=== PATIENT | male | born 1940 | race Caucasian/White ===

== ENCOUNTER 2017-02-03 05:49 | Day surgery (SDC) | payer OTHER ==
[~2017-02-03] VITALS: Ht 180.3 cm; Wt 179.2 kg
[~2017-02-03 05:49] MED LIST: CRESTOR10 MG PO; CYMBALTA; CYMBALTA60 MG; CYMBALTA60 MG PO; GABAPENTIN600 MG PO; GLIMEPIRIDE2 MG PO; HUMALOG100 UNIT/1 SQ; HUMULIN 70100 UNIT/2 SQ; Heparin Sodium SC; KEFLEX500 MG PO; LANTUS 10100 UNITS/ SC; LANTUS 3 M100 UNITS1 SC; LIPITOR40 MG PO; MAALOX ADVANCE355 ML PO; MED FOR GAS; MELOXICAM15 MG; METFORMIN HCL1000 MG PO; NEURONTIN600 MG PO; NOHOMEMEDS; NOVOLOG MI100 UNIT/M PO; NOVOLOG PE100 UNITS/ SC; PERCOCET 5/31 TABLET PO; PERCOCET 7.51 TABLET PO; PRAVASTATIN SOD20 MG; PRINIVIL20 MG PO; PROMETHAZINE HC25 M1 PO; PROTONIX40 MG PO; SENOKOT S,PE1 TABLET PO; SIMVASTATIN10 M1 PO; SIMVASTATIN40 M1; THERAGRAN1 TABLET PO; TRAMADOL HCL50 MG; Tylenol Regular Stre PO; ZANTAC150 MG PO; Zocor PO; oxyCODONE PO
[2017-02-03 06:33] VITALS: BP 140/65
[2017-02-03 06:38] LABS: CHLORIDE 101 mEq/L (99-109); POTASSIUM 4.3 mEq/L (3.7-5.4); SODIUM 138 mEq/L (136-147)
[2017-02-03 06:39] LABS: GLUCOSE 369 mg/dL (70-99)
[2017-02-03 06:41] LABS: ANION GAP 13 MEQ/L (2-14)
[2017-02-03 06:43] LABS: GFR ESTIMATE (CALCULATED) > 59 mL/min/
[2017-02-03 06:44] LABS: UREA NITROGEN (BUN) 13 mg/dL (9-23)
[2017-02-03 07:56] LABS: METH RESISTANT S AUREUS PCR NEGATIVE (NEGATIVE)
[2017-02-03 08:04] LABS: PROBE CHECK PASS; SPECIMEN PROCESSING CONTROL PASS
[2017-02-03 08:08] LABS: POINT-OF-CARE METER ID UU14174212
[2017-02-03 09:12] LABS: POINT-OF-CARE METER ID UU13113675
[2017-02-03 12:04] VITALS: BP 112/74
[2017-02-03 13:06] VITALS: BP 133/69
[2017-02-03 14:44] VITALS: BP 141/82
[2017-02-03 16:40] VITALS: BP 156/76
== END 2017-02-03 17:00 | disposition home or self-care (01) ==
LOC: SDC 05:49
PROVIDERS: Urology
DX: C61 Malignant neoplasm of prostate (principal); R35.0 Frequency of micturition; R35.1 Nocturia; E66.01 Morbid (severe) obesity due to excess calories; Z68.43 Body mass index [BMI] 50.0-59.9, adult; E11.9 Type 2 diabetes mellitus without complications; Z79.4 Long term (current) use of insulin; K21.9 Gastro-esophageal reflux disease without esophagitis; Z99.3 Dependence on wheelchair
CPT/HCPCS: 80048; 82948; 87641; 88305; 93005; J0690; J1580; J1815; J2250; J3010; J7050

== ENCOUNTER → 2017-03-05 | Outpatient (CLI) | payer OTHER ==
[~2017-03-05] VITALS: Ht 180.3 cm; Wt 179.2 kg
[2017-03-05 14:09] LABS: POINT-OF-CARE METER ID UU14174212
[2017-03-05 17:04] LABS: POINT-OF-CARE METER ID UU13113819
== END | disposition home or self-care (01) ==
LOC: AMB 13:37
PROVIDERS: Specialist
DX: R13.10 Dysphagia, unspecified (principal); I89.0 Lymphedema, not elsewhere classified; E78.5 Hyperlipidemia, unspecified; E11.9 Type 2 diabetes mellitus without complications; K21.9 Gastro-esophageal reflux disease without esophagitis; E66.01 Morbid (severe) obesity due to excess calories; Z68.43 Body mass index [BMI] 50.0-59.9, adult
CPT/HCPCS: 82948; 88305; 88342 TC

== ENCOUNTER 2017-03-30 09:55 | Observation (INO) | payer OTHER ==
[~2017-03-30] VITALS: Ht 180.3 cm; Wt 184.0 kg
[~2017-03-30 09:55] MED LIST changes: -NEURONTIN600 MG PO; +NEURONTIN800 MG PO; +TRESIBA FL200 UNIT/1 SC
[2017-03-30 10:48] LABS: HEMATOCRIT 40.9 % (38.0-50.0); MCH 26.7 PG (29.0-34.0); MCHC 32.8 G/DL (30.0-36.0); MCV 81.6 FL (86-99); MEAN PLAT.VOLUME 10.4 uM^3 (9.0-12.4); PLATELET COUNT 219 K/uL (156-360); RBC DIS.WIDTH-CV 14.5 % (11.8-14.6); RED BLOOD COUNT 5.01 M/uL (4.00-5.50)
[2017-03-30 10:57] LABS: CHLORIDE 100 mEq/L (99-109); POTASSIUM 4.8 mEq/L (3.7-5.4); SODIUM 139 mEq/L (136-147)
[2017-03-30 10:59] LABS: GLUCOSE 400 mg/dL (70-99)
[2017-03-30 11:01] LABS: ANION GAP 10 MEQ/L (2-14); TOTAL BILIRUBIN 0.4 mg/dL (0.0-1.0)
[2017-03-30 11:03] LABS: ALKALINE PHOSPHATASE 105 IU/L (3-129); GFR ESTIMATE (CALCULATED) 57 mL/min/
[2017-03-30 11:04] LABS: UREA NITROGEN (BUN) 17 mg/dL (9-23)
[2017-03-30 11:06] LABS: LIPASE 17 U/L (1.0-51.0)
[2017-03-30 13:08] LABS: POINT-OF-CARE METER ID UU14100415
[2017-03-30] MEDS ORDERED: SUCRALFATE1 GM PO (13:29)
[2017-03-30] MEDS ORDERED: COMPAZINE10 MG PO (13:29)
[2017-03-30] MEDS ORDERED: DICYCLOMINE HCL10 MG PO (13:30)
[2017-03-30 14:14] LABS: POINT-OF-CARE METER ID UU14100415
[2017-03-30 18:20] VITALS: BP 179/93
[2017-03-30 19:37] LABS: POINT-OF-CARE METER ID UU13113725
[2017-03-30 20:38] VITALS: BP 142/63
[2017-03-31 00:25] VITALS: BP 140/62
[2017-03-31 06:49] LABS: POINT-OF-CARE METER ID UU13113725
[2017-03-31 06:55] LABS: ANION GAP 8 MEQ/L (2-14); CHLORIDE 104 MEQ/L (99-109); GFR ESTIMATE (CALCULATED) > 59 mL/min/; GLUCOSE 241 mg/dL (70-99); POTASSIUM 4.3 MEQ/L (3.7-5.4); SAMPLE HEMOLYSIS CHECK 0; SAMPLE ICTERIC CHECK 0; SAMPLE LIPEMIA CHECK 0; SODIUM 141 MEQ/L (136-147); UREA NITROGEN (BUN) 16 mg/dL (9-23)
[2017-03-31 07:33] VITALS: BP 136/60
[2017-03-31 11:45] LABS: POINT-OF-CARE METER ID UU13113725
[2017-03-31 12:01] VITALS: BP 136/64
[2017-03-31 14:27] LABS: ADD MIUA? NO; BILIRUBIN NEGATIVE; BLOOD NEGATIVE; COLOR YELLOW ((YELLOW)); GLUCOSE (STRIP) >=500; KETONES 5; LEUKOCYTES NEGATIVE; NITRITE NEGATIVE; PROTEIN (STRIP) NEGATIVE; SPECIFIC GRAVITY 1.025 (1.000-1.030); UROBILINOGEN 0.2 MG/DL (0.2-1.0)
[2017-03-31 14:27] LABS: POINT-OF-CARE METER ID UU13113725
[2017-03-31 16:33] VITALS: BP 167/71
[2017-03-31 18:21] LABS: POINT-OF-CARE METER ID UU13113725
[2017-03-31 23:25] VITALS: BP 145/81
[2017-04-01 00:22] LABS: POINT-OF-CARE METER ID UU13113725
[2017-04-01 03:53] VITALS: BP 137/59
[2017-04-01 06:08] LABS: POINT-OF-CARE METER ID UU13113725
[2017-04-01 06:19] LABS: ANION GAP 6 MEQ/L (2-14); CHLORIDE 104 MEQ/L (99-109); GFR ESTIMATE (CALCULATED) > 59 mL/min/; GLUCOSE 201 mg/dL (70-99); POTASSIUM 3.9 MEQ/L (3.7-5.4); SAMPLE HEMOLYSIS CHECK 0; SAMPLE ICTERIC CHECK 0; SAMPLE LIPEMIA CHECK 0; SODIUM 140 MEQ/L (136-147); UREA NITROGEN (BUN) 14 mg/dL (9-23)
[2017-04-01 06:45] VITALS: BP 135/71
[2017-04-01 13:14] VITALS: BP 155/67
[2017-04-01 15:40] VITALS: BP 142/69
[2017-04-01 16:11] LABS: POINT-OF-CARE METER ID UU14107333
[2017-04-01 17:09] LABS: POINT-OF-CARE METER ID UU13113819
[2017-04-01 19:29] VITALS: BP 129/63
[2017-04-02 00:18] VITALS: BP 144/74
[2017-04-02 00:32] VITALS: BP 144/74
[2017-04-02 07:21] VITALS: BP 129/69
[2017-04-02] MEDS ORDERED: PROTONIX40 MG PO (10:21)
[2017-04-02] MEDS ORDERED: FLUCONAZOLE200 MG PO (10:22)
[2017-04-02 10:57] LABS: POINT-OF-CARE METER ID UU13113725
== END 2017-04-02 11:28 | disposition home or self-care (01) ==
LOC: EME 09:55 → EDOF 11:52 → 5EAST 11:52 → ENRESERV 11:55 → 5EAST 17:28
PROVIDERS: Emergency Medicine; Internal Medicine; Specialist
PROC: 0DB28ZX Excision of Middle Esophagus, Via Natural or Artificial Opening Endoscopic, Diagnostic (ICD-10-PCS; principal; 2017-03-31)
PROC: 0DB38ZX Excision of Lower Esophagus, Via Natural or Artificial Opening Endoscopic, Diagnostic (ICD-10-PCS; principal; 2017-03-31)
PROC: 0DB68ZX Excision of Stomach, Via Natural or Artificial Opening Endoscopic, Diagnostic (ICD-10-PCS; principal; 2017-03-31)
PROC: 0DJD8ZZ Inspection of Lower Intestinal Tract, Via Natural or Artificial Opening Endoscopic (ICD-10-PCS; 2017-04-01)
DX: R11.2 Nausea with vomiting, unspecified (principal); R10.9 Unspecified abdominal pain; K29.70 Gastritis, unspecified, without bleeding; E11.9 Type 2 diabetes mellitus without complications; Z79.4 Long term (current) use of insulin; R13.10 Dysphagia, unspecified; K21.9 Gastro-esophageal reflux disease without esophagitis; Z87.11 Personal history of peptic ulcer disease; E78.5 Hyperlipidemia, unspecified; E73.9 Lactose intolerance, unspecified; E66.01 Morbid (severe) obesity due to excess calories; Z68.43 Body mass index [BMI] 50.0-59.9, adult; C61 Malignant neoplasm of prostate; Z99.3 Dependence on wheelchair
CPT/HCPCS: 70450; 74022; 76705; 80048; 80053; 81003; 82948; 83690; 85027; 88305; 88342 TC; 94799; 99281; 99285; C9113; G0378; J1815; J2250; J2270; J2405; J2765; J7030

== ENCOUNTER → 2017-04-14 | Outpatient (CLI) | payer OTHER ==
[~2017-04-14] MED LIST changes: +COMPAZINE10 MG PO; +DICYCLOMINE HCL10 MG PO; +FLUCONAZOLE200 MG PO; +SUCRALFATE1 GM PO
== END | disposition home or self-care (01) ==
LOC: NUC 06:46
DX: R11.2 Nausea with vomiting, unspecified (principal)
CPT/HCPCS: 78264; A9541

== ENCOUNTER → 2017-05-07 | Outpatient (CLI) | payer OTHER | END | disposition home or self-care (01) | LOC: NUC 08:04 | DX: R10.33 Periumbilical pain (principal); R11.2 Nausea with vomiting, unspecified; K21.9 Gastro-esophageal reflux disease without esophagitis; R19.7 Diarrhea, unspecified | CPT/HCPCS: 78226; A9537 ==

== ENCOUNTER 2017-06-05 08:19 | Emergency (ER) | payer OTHER ==
[~2017-06-05] VITALS: Ht 172.7 cm; Wt 193.1 kg
[2017-06-05 08:55] LABS: HEMATOCRIT 42.7 % (38.0-50.0); MCH 26.7 PG (29.0-34.0); MCHC 32.6 G/DL (30.0-36.0); MEAN PLAT.VOLUME 10.6 uM^3 (9.0-12.4); PLATELET COUNT 193 K/uL (156-360); RBC DIS.WIDTH-CV 14.3 % (11.8-14.6); RBC DIS.WIDTH-SD 42.3 % (39-53); RED BLOOD COUNT 5.21 M/uL (4.00-5.50); WHITE BLOOD COUNT 9.6 K/uL (4.1-10.2)
[2017-06-05 09:03] LABS: CHLORIDE 97 mEq/L (99-109); POTASSIUM 4.9 mEq/L (3.7-5.4); SODIUM 134 mEq/L (136-147)
[2017-06-05 09:06] LABS: ANION GAP 13 MEQ/L (2-14)
[2017-06-05 09:07] LABS: TOTAL BILIRUBIN 0.8 mg/dL (0.0-1.0)
[2017-06-05 09:08] LABS: ALKALINE PHOSPHATASE 100 IU/L (3-129)
[2017-06-05 09:08] LABS: COLOR RED ((YELLOW))
[2017-06-05 09:09] LABS: GFR ESTIMATE (CALCULATED) > 59 mL/min/; GLUCOSE 412 mg/dL (70-99)
[2017-06-05 09:10] LABS: UREA NITROGEN (BUN) 21 mg/dL (9-23)
[2017-06-05 09:10] LABS: ADD MIUA? YES; SPECIFIC GRAVITY 1.031 (1.000-1.030)
[2017-06-05 09:11] LABS: RED BLOOD CELLS TNTC /HPF (0-5); UCUL ADDED? YES
[2017-06-05 11:30] LABS: POINT-OF-CARE METER ID UU13113702
[2017-06-05 12:35] VITALS: BP 106/38
[2017-06-05 12:41] LABS: ADD MIUA? YES; BILIRUBIN NEGATIVE; BLOOD LARGE; COLOR STRAW ((YELLOW)); GLUCOSE (STRIP) 150; KETONES NEGATIVE; LEUKOCYTES NEGATIVE; NITRITE NEGATIVE; PROTEIN (STRIP) NEGATIVE; SPECIFIC GRAVITY 1.006 (1.000-1.030); UROBILINOGEN 0.2 MG/DL (0.2-1.0)
[2017-06-05 13:01] LABS: RED BLOOD CELLS TNTC /HPF (0-5)
[2017-06-05 13:02] LABS: BACTERIA NONE SEEN /HPF; CASTS NONE SEEN /LPF; CRYSTALS NONE SEEN; EPITHELIAL CELLS RARE /HPF; MUCUS NONE SEEN /LPF; WHITE BLOOD CELLS 0-5 /HPF (0-5)
[2017-06-08 11:54] LABS: POINT-OF-CARE METER ID UU13113702
== END 2017-06-05 12:35 | disposition home or self-care (01) ==
LOC: EME → EDBD 08:19 → EME 08:19
PROVIDERS: Nurse Practitioner Family
PROC: 0T9B70Z Drainage of Bladder with Drainage Device, Via Natural or Artificial Opening (ICD-10-PCS; principal; 2017-06-05)
DX: R31.9 Hematuria, unspecified (principal); Z85.46 Personal history of malignant neoplasm of prostate; E11.9 Type 2 diabetes mellitus without complications; E78.5 Hyperlipidemia, unspecified; K21.9 Gastro-esophageal reflux disease without esophagitis; E66.01 Morbid (severe) obesity due to excess calories
CPT/HCPCS: 74177; 80053; 81003; 82948; 85027; 87086; 99281; 99285; J7030

== ENCOUNTER 2017-07-05 15:12 | Inpatient (IN) | payer OTHER ==
[~2017-07-05] VITALS: Ht 180.3 cm; Wt 179.7 kg
[~2017-07-05 15:12] MED LIST changes: +BACTRIM,SEPT1 TABLET PO; +CITALOPRAM HBR20 MG PO
[2017-07-05 15:57] LABS: EOSINOPHIL (%) 1.7 % (0-5); EOSINOPHIL COUNT 0.1 K/uL (0-0.3); HEMATOCRIT 41.9 % (38.0-50.0); IMMATURE GRANULOCYTE (%) 0.7 % (0.0-0.7); IMMATURE GRANULOCYTE COUNT 0.1 K/uL; INSTRUMENT ABS NEUTROPHIL CT 4.8 K/uL; LYMPHOCYTE COUNT 1.5 K/uL (1.0-2.8); MCH 25.9 PG (29.0-34.0); MCHC 32.2 G/DL (30.0-36.0); MCV 80.4 FL (86-99); MEAN PLAT.VOLUME 10.1 uM^3 (9.0-12.4); MONOCYTE (%) 5.5 % (3-12); MONOCYTE COUNT 0.4 K/uL (0-0.8); NEUTROPHIL (%) 69.7 % (45-76); NEUTROPHIL COUNT 4.8 K/uL (1.8-6.4); PLATELET COUNT 275 K/uL (156-360); RBC DIS.WIDTH-CV 13.4 % (11.8-14.6); RBC DIS.WIDTH-SD 39.4 % (39-53); WHITE BLOOD COUNT 6.9 K/uL (4.1-10.2)
[2017-07-05 15:59] LABS: RED BLOOD COUNT 5.21 M/uL (4.00-5.50)
[2017-07-05 16:01] LABS: CHLORIDE 100 mEq/L (99-109); POTASSIUM 4.5 mEq/L (3.7-5.4); SODIUM 136 mEq/L (136-147)
[2017-07-05 16:02] LABS: GLUCOSE 382 mg/dL (70-99)
[2017-07-05 16:04] LABS: ANION GAP 8 MEQ/L (2-14)
[2017-07-05 16:06] LABS: GFR ESTIMATE (CALCULATED) 57 mL/min/; TOTAL BILIRUBIN 0.4 mg/dL (0.0-1.0)
[2017-07-05 16:07] LABS: ALKALINE PHOSPHATASE 235 IU/L (3-129); UREA NITROGEN (BUN) 20 mg/dL (9-23)
[2017-07-05 16:09] LABS: DIRECT BILIRUBIN 0.2 mg/dL (0.0-0.3)
[2017-07-05 16:10] LABS: LIPASE 15 U/L (1.0-51.0)
[2017-07-05 16:20] LABS: CARBON DIOXIDE (BICARBONATE) 32.6 MEQ/L (20-31)
[2017-07-05 19:20] LABS: ADD MIUA? YES; BILIRUBIN NEGATIVE; BLOOD MODERATE; COLOR YELLOW ((YELLOW)); GLUCOSE (STRIP) >=500; KETONES NEGATIVE; LEUKOCYTES LARGE; NITRITE NEGATIVE; PROTEIN (STRIP) 30; SPECIFIC GRAVITY 1.008 (1.000-1.030); UROBILINOGEN 0.2 MG/DL (0.2-1.0)
[2017-07-05 19:39] LABS: BACTERIA 2+ /HPF; CASTS NONE SEEN /LPF; CRYSTALS NONE SEEN; EPITHELIAL CELLS RARE /HPF; MUCUS NONE SEEN /LPF; UCUL ADDED? YES; WHITE BLOOD CELLS TNTC /HPF (0-5)
[2017-07-05] MEDS ORDERED: OXYCODONE-APAP1 EAC6 PO (21:25)
[2017-07-05] MEDS ORDERED: ONDANSETRON HCL4 MG PO (21:29)
[2017-07-05] MEDS ORDERED: DICYCLOMINE HCL10 MG PO (21:30)
[2017-07-05] MEDS ORDERED: PROTONIX40 MG PO (21:31)
[2017-07-05 22:17] LABS: POINT-OF-CARE METER ID UU13113702
[2017-07-06 00:17] VITALS: BP 125/58
[2017-07-06 06:01] LABS: POINT-OF-CARE METER ID UU13113725
[2017-07-06 06:20] LABS: HEMATOCRIT 36.3 % (38.0-50.0); MCH 25.3 PG (29.0-34.0); MCHC 31.1 G/DL (30.0-36.0); MCV 81.4 FL (86-99); MEAN PLAT.VOLUME 9.9 uM^3 (9.0-12.4); PLATELET COUNT 264 K/uL (156-360); RBC DIS.WIDTH-CV 13.7 % (11.8-14.6); RBC DIS.WIDTH-SD 40.9 % (39-53); RED BLOOD COUNT 4.46 M/uL (4.00-5.50); WHITE BLOOD COUNT 7.5 K/uL (4.1-10.2)
[2017-07-06 06:46] LABS: ANION GAP 9 MEQ/L (2-14); CHLORIDE 105 MEQ/L (99-109); GFR ESTIMATE (CALCULATED) > 59 mL/min/; POTASSIUM 4.2 MEQ/L (3.7-5.4); SAMPLE HEMOLYSIS CHECK 0; SAMPLE ICTERIC CHECK 0; SAMPLE LIPEMIA CHECK 0; SODIUM 140 MEQ/L (136-147); UREA NITROGEN (BUN) 18 mg/dL (9-23)
[2017-07-06 06:51] LABS: GLUCOSE 180 mg/dL (70-99)
[2017-07-06 08:37] VITALS: BP 129/55
[2017-07-06 11:41] VITALS: BP 118/51
[2017-07-06 11:42] LABS: POINT-OF-CARE METER ID UU13113725
[2017-07-06 17:02] LABS: POINT-OF-CARE METER ID UU13113725
[2017-07-06 21:19] LABS: POINT-OF-CARE METER ID UU13113774
[2017-07-06 22:32] LABS: POINT-OF-CARE METER ID UU13113725
[2017-07-06 23:42] VITALS: BP 126/56; BP 126/71
[2017-07-07 06:16] LABS: POINT-OF-CARE METER ID UU13113774
[2017-07-07 08:03] VITALS: BP 131/73
[2017-07-07 11:45] LABS: POINT-OF-CARE METER ID UU13113725
[2017-07-07 15:59] VITALS: BP 142/75
[2017-07-07 16:06] LABS: POINT-OF-CARE METER ID UU13113725
[2017-07-07 21:53] LABS: POINT-OF-CARE METER ID UU13113725
[2017-07-08] VITALS: BP 138/81
[2017-07-08 05:47] LABS: BASOPHIL COUNT 0.1 K/uL (0-0.1); EOSINOPHIL (%) 6.1 % (0-5); EOSINOPHIL COUNT 0.5 K/uL (0-0.3); HEMATOCRIT 38.5 % (38.0-50.0); IMMATURE GRANULOCYTE (%) 1.8 % (0.0-0.7); IMMATURE GRANULOCYTE COUNT 0.1 K/uL; INSTRUMENT ABS NEUTROPHIL CT 4.4 K/uL; LYMPHOCYTE COUNT 1.9 K/uL (1.0-2.8); MCH 25.6 PG (29.0-34.0); MCHC 31.2 G/DL (30.0-36.0); MCV 82.1 FL (86-99); MEAN PLAT.VOLUME 9.6 uM^3 (9.0-12.4); MONOCYTE (%) 7.1 % (3-12); MONOCYTE COUNT 0.5 K/uL (0-0.8); NEUTROPHIL COUNT 4.4 K/uL (1.8-6.4); PLATELET COUNT 287 K/uL (156-360); RBC DIS.WIDTH-SD 41.6 % (39-53); RED BLOOD COUNT 4.69 M/uL (4.00-5.50); WHITE BLOOD COUNT 7.4 K/uL (4.1-10.2)
[2017-07-08 06:05] LABS: POINT-OF-CARE METER ID UU13113774
[2017-07-08 06:25] LABS: ANION GAP 8 MEQ/L (2-14); CHLORIDE 105 MEQ/L (99-109); GFR ESTIMATE (CALCULATED) > 59 mL/min/; GLUCOSE 72 mg/dL (70-99); POTASSIUM 4.2 MEQ/L (3.7-5.4); SAMPLE HEMOLYSIS CHECK 0; SAMPLE ICTERIC CHECK 0; SAMPLE LIPEMIA CHECK 0; SODIUM 139 MEQ/L (136-147); UREA NITROGEN (BUN) 18 mg/dL (9-23)
[2017-07-08 07:30] VITALS: BP 140/77
[2017-07-08 11:58] LABS: POINT-OF-CARE METER ID UU13113725
[2017-07-08 16:13] LABS: POINT-OF-CARE METER ID UU13113725
[2017-07-08 16:56] VITALS: BP 142/66
[2017-07-08 22:34] LABS: POINT-OF-CARE METER ID UU13113774
[2017-07-09 00:16] VITALS: BP 106/68
[2017-07-09 05:50] LABS: POINT-OF-CARE METER ID UU13113725
[2017-07-09 07:25] VITALS: BP 117/56
[2017-07-09 11:56] LABS: POINT-OF-CARE METER ID UU13113725
[2017-07-09 15:00] VITALS: BP 120/60
[2017-07-09 15:55] LABS: POINT-OF-CARE METER ID UU13113774
[2017-07-09 21:14] LABS: POINT-OF-CARE METER ID UU13113774
[2017-07-09 23:12] VITALS: BP 171/75
[2017-07-10 06:23] LABS: POINT-OF-CARE METER ID UU13113725
[2017-07-10 08:01] VITALS: BP 156/55
[2017-07-10 11:56] LABS: POINT-OF-CARE METER ID UU13113774
[2017-07-10] MEDS ORDERED: BACTRIM,SEPT1 TABLET PO (12:26)
[2017-07-10 15:54] VITALS: BP 163/67
[2017-07-10 17:03] LABS: POINT-OF-CARE METER ID UU13113774
== END 2017-07-10 16:41 | disposition home or self-care (01) | DRG 690 ==
LOC: EME 15:12 → EDOF 22:20 → 5EAST 22:20 → ENRESERV 22:21 → 5EAST 23:55
PROVIDERS: Hospitalist; Internal Medicine Infectious Disease; Physician Assistant; Student in an Organized Health Care Education/Training Program
DX: N39.0 Urinary tract infection, site not specified (principal); N12 Tubulo-interstitial nephritis, not specified as acute or chronic; E11.65 Type 2 diabetes mellitus with hyperglycemia; R78.81 Bacteremia; N28.82 Megaloureter; Q63.1 Lobulated, fused and horseshoe kidney; E11.40 Type 2 diabetes mellitus with diabetic neuropathy, unspecified; E78.5 Hyperlipidemia, unspecified; I10 Essential (primary) hypertension; E66.9 Obesity, unspecified; B95.8 Unspecified staphylococcus as the cause of diseases classified elsewhere; E87.2 Acidosis; K21.9 Gastro-esophageal reflux disease without esophagitis; Z85.46 Personal history of malignant neoplasm of prostate; F32.9 Major depressive disorder, single episode, unspecified; Z79.4 Long term (current) use of insulin; Z83.3 Family history of diabetes mellitus; Z68.43 Body mass index [BMI] 50.0-59.9, adult
CPT/HCPCS: 74176; 80048; 80076; 80202; 81003; 82010; 82565; 82803; 82948; 83605; 83690; 85025; 85027; 87040; 87086; 87106; 87801; 99281; 99285; J0692; J1200; J1644; J1815; J2543; J3010; J3370; J7030; J7040; J7050

== ENCOUNTER 2017-08-02 15:17 | Inpatient (IN) | payer OTHER ==
[~2017-08-02] VITALS: Ht 180.3 cm; Wt 177.0 kg
[~2017-08-02 15:17] MED LIST changes: +ONDANSETRON HCL4 MG PO; +OXYCODONE-APAP1 EAC6 PO
[2017-08-02 16:10] LABS: EOSINOPHIL (%) 0.8 % (0-5); EOSINOPHIL COUNT 0.1 K/uL (0-0.3); HEMATOCRIT 38.7 % (38.0-50.0); IMMATURE GRANULOCYTE (%) 1.6 % (0.0-0.7); IMMATURE GRANULOCYTE COUNT 0.1 K/uL; INSTRUMENT ABS NEUTROPHIL CT 5.9 K/uL; LYMPHOCYTE COUNT 0.9 K/uL (1.0-2.8); MCH 25.7 PG (29.0-34.0); MCHC 32.3 G/DL (30.0-36.0); MCV 79.5 FL (86-99); MEAN PLAT.VOLUME 9.5 uM^3 (9.0-12.4); MONOCYTE (%) 7.6 % (3-12); MONOCYTE COUNT 0.6 K/uL (0-0.8); NEUTROPHIL (%) 77.7 % (45-76); NEUTROPHIL COUNT 5.9 K/uL (1.8-6.4); PLATELET COUNT 289 K/uL (156-360); RBC DIS.WIDTH-CV 14.2 % (11.8-14.6); RBC DIS.WIDTH-SD 40.8 % (39-53); RED BLOOD COUNT 4.87 M/uL (4.00-5.50); WHITE BLOOD COUNT 7.6 K/uL (4.1-10.2)
[2017-08-02 16:19] LABS: CHLORIDE 97 mEq/L (99-109); POTASSIUM 3.7 mEq/L (3.7-5.4); SODIUM 138 mEq/L (136-147)
[2017-08-02 16:21] LABS: GLUCOSE 338 mg/dL (70-99)
[2017-08-02 16:22] LABS: ANION GAP 13 MEQ/L (2-14)
[2017-08-02 16:23] LABS: TOTAL BILIRUBIN 0.6 mg/dL (0.0-1.0)
[2017-08-02 16:24] LABS: ALKALINE PHOSPHATASE 207 IU/L (3-129)
[2017-08-02 16:25] LABS: GFR ESTIMATE (CALCULATED) 57 mL/min/ (58.99-99999)
[2017-08-02 16:26] LABS: UREA NITROGEN (BUN) 17 mg/dL (9-23)
[2017-08-02 16:29] LABS: ADD MIUA? YES; BILIRUBIN NEGATIVE; BLOOD SMALL; COLOR YELLOW ((YELLOW)); GLUCOSE (STRIP) NEGATIVE; KETONES NEGATIVE; LEUKOCYTES MODERATE; NITRITE NEGATIVE; PROTEIN (STRIP) 100; SPECIFIC GRAVITY 1.011 (1.000-1.030)
[2017-08-02 16:51] LABS: BACTERIA 2+ /HPF; EPITHELIAL CELLS NONE SEEN /HPF; MUCUS NONE SEEN /LPF; UCUL ADDED? YES; WHITE BLOOD CELLS TNTC /HPF (0-5)
[2017-08-02 16:52] LABS: CRYSTALS NONE SEEN
[2017-08-02] MEDS ORDERED: CITALOPRAM HBR20 MG PO ×2 (19:35)
[2017-08-02] MEDS ORDERED: B-123000 MCG SL (19:36)
[2017-08-02] MEDS ORDERED: COMPAZINE10 MG PO (19:37)
[2017-08-02 22:01] VITALS: BP 115/62
[2017-08-02 22:21] LABS: POINT-OF-CARE METER ID UU13113698
[2017-08-02 23:44] VITALS: BP 121/62
[2017-08-03 03:51] VITALS: BP 130/60
[2017-08-03 05:28] LABS: EOSINOPHIL (%) 2.2 % (0-5); EOSINOPHIL COUNT 0.2 K/uL (0-0.3); HEMATOCRIT 34.9 % (38.0-50.0); IMMATURE GRANULOCYTE (%) 1.3 % (0.0-0.7); IMMATURE GRANULOCYTE COUNT 0.1 K/uL; INSTRUMENT ABS NEUTROPHIL CT 5.2 K/uL; LYMPHOCYTE COUNT 1.5 K/uL (1.0-2.8); MCH 25.4 PG (29.0-34.0); MCHC 32.1 G/DL (30.0-36.0); MCV 79.1 FL (86-99); MEAN PLAT.VOLUME 9.9 uM^3 (9.0-12.4); MONOCYTE (%) 8.3 % (3-12); MONOCYTE COUNT 0.6 K/uL (0-0.8); NEUTROPHIL (%) 68.7 % (45-76); NEUTROPHIL COUNT 5.2 K/uL (1.8-6.4); PLATELET COUNT 282 K/uL (156-360); RBC DIS.WIDTH-CV 14.5 % (11.8-14.6); RBC DIS.WIDTH-SD 41.6 % (39-53); RED BLOOD COUNT 4.41 M/uL (4.00-5.50); WHITE BLOOD COUNT 7.6 K/uL (4.1-10.2)
[2017-08-03 05:39] LABS: CHLORIDE 102 mEq/L (99-109); POTASSIUM 3.2 mEq/L (3.7-5.4); SODIUM 141 mEq/L (136-147)
[2017-08-03 05:41] LABS: GLUCOSE 183 mg/dL (70-99)
[2017-08-03 05:42] LABS: ANION GAP 11 MEQ/L (2-14)
[2017-08-03 05:45] LABS: GFR ESTIMATE (CALCULATED) 57 mL/min/ (58.99-99999)
[2017-08-03 05:46] LABS: UREA NITROGEN (BUN) 21 mg/dL (9-23)
[2017-08-03 08:13] LABS: POINT-OF-CARE METER ID UU14174216
[2017-08-03 08:35] VITALS: BP 123/78
[2017-08-03 11:31] VITALS: BP 130/61
[2017-08-03 12:03] LABS: POINT-OF-CARE METER ID UU14314088
[2017-08-03 15:57] VITALS: BP 125/62
[2017-08-03 17:26] LABS: POINT-OF-CARE METER ID UU13113781
[2017-08-03 19:50] VITALS: BP 127/62
[2017-08-03 20:57] LABS: POINT-OF-CARE METER ID UU14174216
[2017-08-03 21:30] VITALS: BP 134/73
[2017-08-04 04:31] VITALS: BP 100/56
[2017-08-04 06:53] LABS: EOSINOPHIL (%) 4.6 % (0-5); EOSINOPHIL COUNT 0.4 K/uL (0-0.3); HEMATOCRIT 35.7 % (38.0-50.0); IMMATURE GRANULOCYTE (%) 1.2 % (0.0-0.7); IMMATURE GRANULOCYTE COUNT 0.1 K/uL; INSTRUMENT ABS NEUTROPHIL CT 4.7 K/uL; LYMPHOCYTE COUNT 1.9 K/uL (1.0-2.8); MCH 25.5 PG (29.0-34.0); MCHC 31.7 G/DL (30.0-36.0); MCV 80.6 FL (86-99); MEAN PLAT.VOLUME 9.9 uM^3 (9.0-12.4); MONOCYTE (%) 8.3 % (3-12); MONOCYTE COUNT 0.6 K/uL (0-0.8); NEUTROPHIL COUNT 4.7 K/uL (1.8-6.4); PLATELET COUNT 301 K/uL (156-360); RBC DIS.WIDTH-CV 14.7 % (11.8-14.6); RBC DIS.WIDTH-SD 43.2 % (39-53); RED BLOOD COUNT 4.43 M/uL (4.00-5.50); WHITE BLOOD COUNT 7.6 K/uL (4.1-10.2)
[2017-08-04 07:17] LABS: ANION GAP 8 MEQ/L (2-14); CHLORIDE 104 MEQ/L (99-109); GFR ESTIMATE (CALCULATED) > 59 mL/min/ (58.99-99999); POTASSIUM 3.5 MEQ/L (3.7-5.4); SAMPLE HEMOLYSIS CHECK 0; SAMPLE ICTERIC CHECK 0; SAMPLE LIPEMIA CHECK 0; SODIUM 142 MEQ/L (136-147); UREA NITROGEN (BUN) 20 mg/dL (9-23)
[2017-08-04 07:21] LABS: GLUCOSE 88 mg/dL (70-99)
[2017-08-04 07:30] VITALS: BP 160/77
[2017-08-04 08:01] LABS: POINT-OF-CARE METER ID UU13113717
[2017-08-04 11:32] VITALS: BP 106/70
[2017-08-04 12:13] LABS: POINT-OF-CARE METER ID UU14174225
[2017-08-04 17:10] LABS: POINT-OF-CARE METER ID UU14174225
[2017-08-04 19:29] VITALS: BP 129/59
[2017-08-04 21:40] LABS: POINT-OF-CARE METER ID UU14174225
[2017-08-04 23:46] VITALS: BP 119/68
[2017-08-05 04:16] VITALS: BP 128/59
[2017-08-05 07:30] LABS: POINT-OF-CARE METER ID UU13113717
[2017-08-05 08:14] VITALS: BP 129/60
[2017-08-05 11:56] LABS: POINT-OF-CARE METER ID UU13113717
[2017-08-05] MEDS ORDERED: DIFLUCAN200 MG PO (15:44)
[2017-08-05] MEDS ORDERED: BACTRIM,SEPT1 TABLET PO (15:44)
[2017-08-05 16:33] VITALS: BP 138/64
[2017-08-05 17:49] LABS: POINT-OF-CARE METER ID UU13113717
== END 2017-08-05 18:18 | disposition home health service (06) | DRG 872 ==
LOC: EME 15:17 → 5SOUTH 19:37 → 4EAST 19:37 → EDOF 19:37 → ENRESERV 19:48 → 4EAST 21:43 → ENRESERV 08-03 16:54 → 5SOUTH 08-03 21:22 → ENPENDDIS 08-05 15:44 → 5SOUTH 08-05 18:18
PROVIDERS: Hospitalist; Physician Assistant; Student in an Organized Health Care Education/Training Program
DX: A41.9 Sepsis, unspecified organism (principal); N39.0 Urinary tract infection, site not specified; K21.9 Gastro-esophageal reflux disease without esophagitis; Z68.43 Body mass index [BMI] 50.0-59.9, adult; C61 Malignant neoplasm of prostate; E66.01 Morbid (severe) obesity due to excess calories; E87.2 Acidosis; Z87.440 Personal history of urinary (tract) infections; F32.9 Major depressive disorder, single episode, unspecified; R32 Unspecified urinary incontinence; E11.9 Type 2 diabetes mellitus without complications
CPT/HCPCS: 74177; 80048; 80053; 81003; 82948; 83605; 85025; 87040; 87086; 87106; 87493; 99281; 99285; J0692; J1650; J1815; J7030; J7040; J7120

== ENCOUNTER 2017-08-23 16:06 | Emergency (ER) | payer OTHER ==
[~2017-08-23] VITALS: Ht 172.7 cm; Wt 177.5 kg
[~2017-08-23 16:06] MED LIST changes: +B-123000 MCG SL; +DIFLUCAN200 MG PO
[2017-08-23 17:09] LABS: HEMATOCRIT 34.7 % (38.0-50.0); HEMOGLOBIN 11.1 G/DL (12.5-16.6); MCH 25.1 PG (29.0-34.0); MCV 78.5 FL (86-99); PLATELET COUNT 251 K/uL (156-360); RBC DIS.WIDTH-CV 14.6 % (11.8-14.6); RBC DIS.WIDTH-SD 41.7 % (39-53); RED BLOOD COUNT 4.42 M/uL (4.00-5.50); WHITE BLOOD COUNT 6.2 K/uL (4.1-10.2)
[2017-08-23 17:17] LABS: CHLORIDE 99 mEq/L (99-109); POTASSIUM 3.7 mEq/L (3.7-5.4); SODIUM 136 mEq/L (136-147)
[2017-08-23 17:18] LABS: GLUCOSE 374 mg/dL (70-99)
[2017-08-23 17:22] LABS: CREATININE 1.1 mg/dL (0.6-1.3); GFR ESTIMATE (CALCULATED) > 59 mL/min/ (58.99-99999)
[2017-08-23 17:23] LABS: UREA NITROGEN (BUN) 12 mg/dL (9-23)
[2017-08-23 19:03] LABS: APPEARANCE TURBID ((CLEAR)); BILIRUBIN NEGATIVE; BLOOD MODERATE; GLUCOSE (STRIP) >=500; KETONES NEGATIVE; LEUKOCYTES LARGE; NITRITE NEGATIVE; PROTEIN (STRIP) 30; SPECIFIC GRAVITY 1.005 (1.000-1.030); UROBILINOGEN 0.2 MG/DL (0.2-1.0)
[2017-08-23 19:05] LABS: COLOR YELLOW ((YELLOW))
[2017-08-23 19:17] LABS: BACTERIA 1+ /HPF; EPITHELIAL CELLS 1+ /HPF; MUCUS NONE SEEN /LPF; RED BLOOD CELLS 0-5 /HPF (0-5); UCUL ADDED? YES; WHITE BLOOD CELLS TNTC /HPF (0-5)
[2017-08-23 21:00] VITALS: BP 139/81
== END 2017-08-23 21:15 | disposition home or self-care (01) ==
LOC: EME 16:06
PROVIDERS: Emergency Medicine
DX: N39.0 Urinary tract infection, site not specified (principal); E11.65 Type 2 diabetes mellitus with hyperglycemia; E11.40 Type 2 diabetes mellitus with diabetic neuropathy, unspecified; K21.9 Gastro-esophageal reflux disease without esophagitis; E78.5 Hyperlipidemia, unspecified; B19.10 Unspecified viral hepatitis B without hepatic coma; F32.9 Major depressive disorder, single episode, unspecified; Z85.07 Personal history of malignant neoplasm of pancreas; Z79.4 Long term (current) use of insulin
CPT/HCPCS: 80048; 81003; 82948; 85027; 87086; 99281; 99284; J0696; J7030

== ENCOUNTER 2017-08-25 10:22 | Inpatient (IN) | payer OTHER ==
[~2017-08-25] VITALS: Ht 180.3 cm; Wt 177.0 kg
[2017-08-25 12:24] LABS: HEMATOCRIT 34.1 % (38.0-50.0); HEMOGLOBIN 11.1 G/DL (12.5-16.6); MCH 25.5 PG (29.0-34.0); MCHC 32.6 G/DL (30.0-36.0); MCV 78.4 FL (86-99); PLATELET COUNT 280 K/uL (156-360); RBC DIS.WIDTH-CV 14.7 % (11.8-14.6); RBC DIS.WIDTH-SD 42.3 % (39-53); RED BLOOD COUNT 4.35 M/uL (4.00-5.50); WHITE BLOOD COUNT 6.9 K/uL (4.1-10.2)
[2017-08-25 12:36] LABS: ALBUMIN 2.8 g/dL (3.2-4.8)
[2017-08-25 12:37] LABS: CHLORIDE 102 mEq/L (99-109); POTASSIUM 3.3 mEq/L (3.7-5.4); SODIUM 138 mEq/L (136-147)
[2017-08-25 12:39] LABS: GLUCOSE 376 mg/dL (70-99)
[2017-08-25 12:41] LABS: TOTAL BILIRUBIN 0.4 mg/dL (0.0-1.0)
[2017-08-25 12:42] LABS: ALKALINE PHOSPHATASE 138 IU/L (3-129); SERUM ETHYL ALCOHOL < 10 mg/dL
[2017-08-25 12:43] LABS: GFR ESTIMATE (CALCULATED) > 59 mL/min/ (58.99-99999)
[2017-08-25 12:44] LABS: AST (GOT) 21 IU/L (2-34); UREA NITROGEN (BUN) 8 mg/dL (9-23)
[2017-08-25 12:46] LABS: ALT (GPT) 23 IU/L (3-49)
[2017-08-25 13:35] LABS: APPEARANCE TURBID ((CLEAR)); BILIRUBIN NEGATIVE; BLOOD MODERATE; COLOR AMBER ((YELLOW)); GLUCOSE (STRIP) >=500; KETONES NEGATIVE; LEUKOCYTES MODERATE; NITRITE NEGATIVE; PROTEIN (STRIP) 100; SPECIFIC GRAVITY 1.006 (1.000-1.030); UROBILINOGEN 0.2 MG/DL (0.2-1.0)
[2017-08-25 13:48] LABS: WHITE BLOOD CELLS TNTC /HPF (0-5)
[2017-08-25 14:37] LABS: AMPHETAMINE NEGATIVE (500 ng/mL); BARBITURATES NEGATIVE (200 ng/mL); BENZODIAZEPINES NEGATIVE (150 ng/mL); BUPRENORPHINE NEGATIVE (10 ng/mL); COCAINE NEGATIVE (150 ng/mL); METHADONE NEGATIVE (200 ng/mL); METHAMPHETAMINE NEGATIVE (500 ng/mL); OPIATES (MORPHINE) NEGATIVE (100 ng/mL); OXYCODONE NEGATIVE (100 ng/mL); PHENCYCLIDINE NEGATIVE (25 ng/mL); PROPOXYPHENE NEGATIVE (300 ng/mL); THC CANNABINOIDS NEGATIVE (50 ng/mL); TRICYCLIC ANTIDEPRESSANTS NEGATIVE (300 ng/mL)
[2017-08-25] MEDS ORDERED: SUPER MULTIVIT1 EACH PO (17:10)
[2017-08-25 20:47] VITALS: BP 112/51
[2017-08-25 23:55] VITALS: BP 118/52
[2017-08-26] VITALS (7 sets, daily range): BP systolic 131–149; BP diastolic 71–91
[2017-08-26 07:22] LABS: HEMATOCRIT 33.9 % (38.0-50.0); HEMOGLOBIN 10.7 G/DL (12.5-16.6); MCH 24.8 PG (29.0-34.0); MCHC 31.6 G/DL (30.0-36.0); MCV 78.5 FL (86-99); PLATELET COUNT 291 K/uL (156-360); RBC DIS.WIDTH-CV 14.8 % (11.8-14.6); RBC DIS.WIDTH-SD 42.6 % (39-53); RED BLOOD COUNT 4.32 M/uL (4.00-5.50); WHITE BLOOD COUNT 6.4 K/uL (4.1-10.2)
[2017-08-26 07:39] LABS: CHLORIDE 100 MEQ/L (99-109); CREATININE 1.1 MG/DL (0.6-1.3); GFR ESTIMATE (CALCULATED) > 59 mL/min/ (58.99-99999); GLUCOSE 238 mg/dL (70-99); POTASSIUM 3.5 MEQ/L (3.7-5.4); SODIUM 134 MEQ/L (136-147); UREA NITROGEN (BUN) 12 mg/dL (9-23)
[2017-08-27 03:53] VITALS: BP 145/85
[2017-08-27 06:02] LABS: HEMATOCRIT 36.1 % (38.0-50.0); HEMOGLOBIN 11.3 G/DL (12.5-16.6); MCH 24.9 PG (29.0-34.0); MCHC 31.3 G/DL (30.0-36.0); MCV 79.5 FL (86-99); PLATELET COUNT 329 K/uL (156-360); RBC DIS.WIDTH-CV 15.1 % (11.8-14.6); RBC DIS.WIDTH-SD 43.6 % (39-53); RED BLOOD COUNT 4.54 M/uL (4.00-5.50); WHITE BLOOD COUNT 7.2 K/uL (4.1-10.2)
[2017-08-27 06:28] LABS: CHLORIDE 104 MEQ/L (99-109); GFR ESTIMATE (CALCULATED) > 59 mL/min/ (58.99-99999); GLUCOSE 112 mg/dL (70-99); POTASSIUM 4.1 MEQ/L (3.7-5.4); UREA NITROGEN (BUN) 10 mg/dL (9-23)
[2017-08-27 06:29] LABS: SODIUM 141 MEQ/L (136-147)
[2017-08-27 08:13] VITALS: BP 126/63
[2017-08-27 12:00] VITALS: BP 124/66
[2017-08-27 15:37] VITALS: BP 152/82
[2017-08-27 19:44] VITALS: BP 139/59
[2017-08-28 00:09] VITALS: BP 139/64
[2017-08-28 03:44] VITALS: BP 139/75
[2017-08-28 08:30] VITALS: BP 153/85
[2017-08-28 15:50] VITALS: BP 158/72
[2017-08-29 00:02] VITALS: BP 156/74
[2017-08-29 07:29] VITALS: BP 150/82
[2017-08-29 15:10] VITALS: BP 130/67
[2017-08-29 23:24] VITALS: BP 122/56
[2017-08-30 07:00] VITALS: BP 172/80
[2017-08-30 09:29] LABS: HEMOGLOBIN 11.4 G/DL (12.5-16.6); MCH 25.5 PG (29.0-34.0); MCHC 30.8 G/DL (30.0-36.0); MCV 82.8 FL (86-99); PLATELET COUNT 348 K/uL (156-360); RBC DIS.WIDTH-CV 16.3 % (11.8-14.6); RBC DIS.WIDTH-SD 49.1 % (39-53); RED BLOOD COUNT 4.47 M/uL (4.00-5.50); WHITE BLOOD COUNT 7.1 K/uL (4.1-10.2)
[2017-08-30 10:03] LABS: CHLORIDE 101 MEQ/L (99-109); CREATININE 1.2 MG/DL (0.6-1.3); GFR ESTIMATE (CALCULATED) > 59 mL/min/ (58.99-99999); GLUCOSE 142 mg/dL (70-99); POTASSIUM 4.8 MEQ/L (3.7-5.4); SODIUM 140 MEQ/L (136-147); UREA NITROGEN (BUN) 20 mg/dL (9-23)
[2017-08-30 10:05] VITALS: BP 130/58
[2017-08-30] MEDS ORDERED: FLUCONAZOLE200 MG PO (15:00)
== END 2017-08-30 16:40 | disposition home health service (06) | DRG 728 ==
LOC: EME 10:22 → 5SOUTH 17:16 → EDOF 17:16 → ENRESERV 17:21 → 5SOUTH 20:45
PROVIDERS: Emergency Medicine; Internal Medicine; Nurse Practitioner Adult Health; Physician Assistant Medical
DX: B37.49 Other urogenital candidiasis (principal); E87.6 Hypokalemia; F33.1 Major depressive disorder, recurrent, moderate; R45.851 Suicidal ideations; E11.42 Type 2 diabetes mellitus with diabetic polyneuropathy; E11.65 Type 2 diabetes mellitus with hyperglycemia; G89.29 Other chronic pain; K21.9 Gastro-esophageal reflux disease without esophagitis; E66.01 Morbid (severe) obesity due to excess calories; M25.519 Pain in unspecified shoulder; M54.5 Low back pain; R32 Unspecified urinary incontinence; D64.9 Anemia, unspecified; R26.2 Difficulty in walking, not elsewhere classified; R29.6 Repeated falls; Z68.43 Body mass index [BMI] 50.0-59.9, adult; Z79.4 Long term (current) use of insulin; Z85.46 Personal history of malignant neoplasm of prostate; Z86.14 Personal history of Methicillin resistant Staphylococcus aureus infection; Z91.19 Patient's noncompliance with other medical treatment and regimen
CPT/HCPCS: 80048; 80053; 81003; 82140; 82800; 82948; 83930; 85027; 87086; 87106; 99281; 99284; G0480; J0696; J1450; J1650; J1815; J7030

== ENCOUNTER 2017-09-22 14:45 | Inpatient (IN) | payer OTHER ==
[~2017-09-22] VITALS: Ht 180.3 cm; Wt 181.2 kg
[~2017-09-22 14:45] MED LIST changes: +SUPER MULTIVIT1 EACH PO
[2017-09-22 16:27] LABS: BASE EXCESS 7.3 mEq/L (-3 to +3); CARBOXY HGB 2.1 % (0-5); METHEMOGLOBIN 0.7 % (0-1.5); PCO2 45 mm Hg (35-45); PO2 57 mm Hg (80-100); pH 7.46 (7.35-7.45)
[2017-09-22 16:28] LABS: COMMENTS - BLOOD GASES A+C+; SITE RB
[2017-09-22 16:48] LABS: BASOPHIL (%) 0.7 % (0-1); EOSINOPHIL (%) 1.4 % (0-5); EOSINOPHIL COUNT 0.1 K/uL (0-0.3); HEMATOCRIT 39.1 % (38.0-50.0); HEMOGLOBIN 12.2 G/DL (12.5-16.6); IMMATURE GRANULOCYTE (%) 0.7 % (0.0-0.7); LYMPHOCYTE COUNT 0.8 K/uL (1.0-2.8); MCH 25.4 PG (29.0-34.0); MCHC 31.2 G/DL (30.0-36.0); MCV 81.5 FL (86-99); MONOCYTE (%) 6.4 % (3-12); MONOCYTE COUNT 0.3 K/uL (0-0.8); NEUTROPHIL (%) 71.8 % (45-76); RBC DIS.WIDTH-CV 16.7 % (11.8-14.6); RBC DIS.WIDTH-SD 49.8 % (39-53); WHITE BLOOD COUNT 4.2 K/uL (4.1-10.2)
[2017-09-22 16:53] LABS: ALBUMIN 3.5 g/dL (3.2-4.8); CHLORIDE 103 mEq/L (99-109); SODIUM 143 mEq/L (136-147)
[2017-09-22 16:55] LABS: GLUCOSE 131 mg/dL (70-99); TOTAL PROTEIN 8.7 g/dL (6.4-8.3)
[2017-09-22 16:57] LABS: TOTAL BILIRUBIN 0.4 mg/dL (0.0-1.0)
[2017-09-22 16:59] LABS: ALKALINE PHOSPHATASE 159 IU/L (3-129); CREATININE 1.4 mg/dL (0.6-1.3); GFR ESTIMATE (CALCULATED) 53 mL/min/ (58.99-99999); TROP-I INTERPRETATION NEGATIVE; TROPONIN-I 0.02 ng/mL (0.0-0.30)
[2017-09-22 17:00] LABS: AST (GOT) 42 IU/L (2-34); UREA NITROGEN (BUN) 13 mg/dL (9-23)
[2017-09-22 17:01] LABS: DIRECT BILIRUBIN 0.2 mg/dL (0.0-0.3)
[2017-09-22 17:02] LABS: ALT (GPT) 25 IU/L (3-49); LIPASE 6 U/L (1.0-51.0)
[2017-09-22 17:13] LABS: INTER. NORMALIZED RATIO 1.3
[2017-09-22 17:16] LABS: PTT 33.6 SEC (25-37)
[2017-09-22 17:48] LABS: PLATELET CLUMPS PRESENT - PLATELET COUNT APPEARS ADQ.; PLATELET COUNT UNABLE TO REPORT K/uL (156-360)
[2017-09-22 21:14] LABS: APPEARANCE CLEAR ((CLEAR)); BILIRUBIN NEGATIVE; BLOOD NEGATIVE; COLOR YELLOW ((YELLOW)); GLUCOSE (STRIP) NEGATIVE; KETONES NEGATIVE; LEUKOCYTES LARGE; NITRITE NEGATIVE; PROTEIN (STRIP) NEGATIVE; SPECIFIC GRAVITY 1.009 (1.000-1.030); UROBILINOGEN 0.2 MG/DL (0.2-1.0)
[2017-09-22 21:22] LABS: BACTERIA RARE /HPF; EPITHELIAL CELLS RARE /HPF; MUCUS TRACE /LPF; RED BLOOD CELLS 0-5 /HPF (0-5); UCUL ADDED? YES; WHITE BLOOD CELLS 30-40 /HPF (0-5)
[2017-09-23 00:22] VITALS: BP 146/64
[2017-09-23 03:39] VITALS: BP 154/69
[2017-09-23 07:50] VITALS: BP 158/72
[2017-09-23 12:14] VITALS: BP 134/62
[2017-09-23 16:23] VITALS: BP 101/59
[2017-09-23 16:26] VITALS: BP 133/65
[2017-09-24 00:18] VITALS: BP 160/78
[2017-09-24 07:35] LABS: ALBUMIN 2.4 G/DL (3.2-4.8); ALKALINE PHOSPHATASE 105 IU/L (3-129); ALT (GPT) 20 IU/L (3-49); AST (GOT) 36 IU/L (2-34); CHLORIDE 106 MEQ/L (99-109); CREATININE 1.1 MG/DL (0.6-1.3); GFR ESTIMATE (CALCULATED) > 59 mL/min/ (58.99-99999); POTASSIUM 3.5 MEQ/L (3.7-5.4); SODIUM 145 MEQ/L (136-147); TOTAL BILIRUBIN 0.3 MG/DL (0.0-1.0); TOTAL PROTEIN 5.6 G/DL (6.4-8.3); UREA NITROGEN (BUN) 15 mg/dL (9-23)
[2017-09-24 07:37] LABS: GLUCOSE 71 mg/dL (70-99)
[2017-09-24 08:11] VITALS: BP 164/74
[2017-09-24 11:47] VITALS: BP 120/71
[2017-09-24 15:50] VITALS: BP 101/55; BP 128/18
[2017-09-24 20:05] VITALS: BP 124/58
[2017-09-25 00:15] VITALS: BP 129/60
[2017-09-25 04:10] VITALS: BP 125/59
[2017-09-25 07:24] LABS: ALBUMIN 2.5 G/DL (3.2-4.8); ALKALINE PHOSPHATASE 104 IU/L (3-129); ALT (GPT) 19 IU/L (3-49); AST (GOT) 29 IU/L (2-34); CHLORIDE 105 MEQ/L (99-109); GFR ESTIMATE (CALCULATED) > 59 mL/min/ (58.99-99999); POTASSIUM 3.8 MEQ/L (3.7-5.4); SODIUM 143 MEQ/L (136-147); TOTAL BILIRUBIN 0.3 MG/DL (0.0-1.0); TOTAL PROTEIN 5.5 G/DL (6.4-8.3); UREA NITROGEN (BUN) 14 mg/dL (9-23)
[2017-09-25 07:43] LABS: GLUCOSE 101 mg/dL (70-99)
[2017-09-25 08:34] VITALS: BP 139/63
[2017-09-25 16:39] VITALS: BP 148/67
[2017-09-26 08:26] VITALS: BP 135/63
[2017-09-26] MEDS ORDERED: LISINOPRIL20 MG PO (10:51)
[2017-09-26] MEDS ORDERED: LEVEMIR100 UNIT/2 SC (10:51)
[2017-09-26] MEDS ORDERED: ENDOCET 5-3251 EACH PO (10:51)
[2017-09-26] MEDS ORDERED: PEN-VEE K,VEET500 MG PO (10:51)
[2017-09-26 16:32] VITALS: BP 137/66
== END 2017-09-26 17:20 | DRG 872 ==
LOC: EME 14:45 → 5EAST 19:14 → EDOF 19:14 → ENRESERV 19:40 → 5EAST 09-23 00:04 → ENPENDDIS 09-26 15:30 → 5EAST 09-26 17:20
PROVIDERS: Emergency Medicine; Family Medicine; Internal Medicine
DX: A41.9 Sepsis, unspecified organism (principal); N39.0 Urinary tract infection, site not specified; B37.49 Other urogenital candidiasis; E66.01 Morbid (severe) obesity due to excess calories; Z68.43 Body mass index [BMI] 50.0-59.9, adult; I87.2 Venous insufficiency (chronic) (peripheral); E11.40 Type 2 diabetes mellitus with diabetic neuropathy, unspecified; E78.5 Hyperlipidemia, unspecified; C61 Malignant neoplasm of prostate; Z87.440 Personal history of urinary (tract) infections; K21.9 Gastro-esophageal reflux disease without esophagitis; R53.1 Weakness; Z91.19 Patient's noncompliance with other medical treatment and regimen; Q63.1 Lobulated, fused and horseshoe kidney; F32.9 Major depressive disorder, single episode, unspecified; F41.9 Anxiety disorder, unspecified; N05.9 Unspecified nephritic syndrome with unspecified morphologic changes
CPT/HCPCS: 36600; 71045; 76770; 80053; 81003; 82248; 82803; 82948; 83605; 83690; 84484; 85025; 85610; 85730; 87040; 87086; 93005; 99281; 99285; G0103; J0692; J1450; J1650; J7030

== ENCOUNTER 2017-10-02 10:00 | Inpatient (IN) | payer OTHER ==
[~2017-10-02] VITALS: Ht 180.3 cm; Wt 182.4 kg
[~2017-10-02 10:00] MED LIST changes: +ENDOCET 5-3251 EACH PO; +LEVEMIR100 UNIT/2 SC; +LISINOPRIL20 MG PO; +PEN-VEE K,VEET500 MG PO
[2017-10-02 10:55] LABS: APPEARANCE TURBID ((CLEAR)); BILIRUBIN NEGATIVE; BLOOD LARGE; COLOR AMBER ((YELLOW)); GLUCOSE (STRIP) NEGATIVE; KETONES NEGATIVE; LEUKOCYTES LARGE; NITRITE NEGATIVE; PROTEIN (STRIP) 100; SPECIFIC GRAVITY 1.008 (1.000-1.030); UROBILINOGEN 0.2 MG/DL (0.2-1.0)
[2017-10-02 11:17] LABS: UCUL ADDED? YES; WHITE BLOOD CELLS TNTC /HPF (0-5)
[2017-10-02 11:19] LABS: HEMATOCRIT 39.1 % (38.0-50.0); HEMOGLOBIN 12.8 G/DL (12.5-16.6); MCH 25.5 PG (29.0-34.0); MCHC 32.7 G/DL (30.0-36.0); RBC DIS.WIDTH-CV 16.1 % (11.8-14.6); RBC DIS.WIDTH-SD 45.2 % (39-53); RED BLOOD COUNT 5.01 M/uL (4.00-5.50); WHITE BLOOD COUNT 13.4 K/uL (4.1-10.2)
[2017-10-02 11:21] LABS: PLATELET COUNT 432 K/uL (156-360)
[2017-10-02 11:32] LABS: ALBUMIN 2.8 g/dL (3.2-4.8); CHLORIDE 102 mEq/L (99-109); POTASSIUM 3.4 mEq/L (3.7-5.4); SODIUM 139 mEq/L (136-147)
[2017-10-02 11:34] LABS: GLUCOSE 333 mg/dL (70-99)
[2017-10-02 11:35] LABS: TOTAL PROTEIN 6.9 g/dL (6.4-8.3)
[2017-10-02 11:36] LABS: TOTAL BILIRUBIN 0.6 mg/dL (0.0-1.0)
[2017-10-02 11:38] LABS: ALKALINE PHOSPHATASE 176 IU/L (3-129); CREATININE 1.1 mg/dL (0.6-1.3); GFR ESTIMATE (CALCULATED) > 59 mL/min/ (58.99-99999)
[2017-10-02 11:39] LABS: UREA NITROGEN (BUN) 11 mg/dL (9-23)
[2017-10-02 11:40] LABS: AST (GOT) 38 IU/L (2-34)
[2017-10-02 11:41] LABS: ALT (GPT) 30 IU/L (3-49); LIPASE 12 U/L (1.0-51.0)
[2017-10-02 11:42] LABS: CREATINE KINASE 25 IU/L (1-294)
[2017-10-02] MEDS ORDERED: OXYCODONE-APAP1 EAC6 PO (14:45)
[2017-10-02] MEDS ORDERED: TRESIBA FL100 UNIT/1 SC (14:47)
[2017-10-02] MEDS ORDERED: CREAM TP (14:48)
[2017-10-02] MEDS ORDERED: GABAPENTIN800 MG PO (14:48)
[2017-10-02 20:10] VITALS: BP 116/67
[2017-10-03 00:48] VITALS: BP 120/65
[2017-10-03 04:18] VITALS: BP 121/67
[2017-10-03 07:16] LABS: BASOPHIL (%) 0.7 % (0-1); BASOPHIL COUNT 0.1 K/uL (0-0.1); EOSINOPHIL (%) 4.2 % (0-5); EOSINOPHIL COUNT 0.4 K/uL (0-0.3); HEMATOCRIT 32.3 % (38.0-50.0); IMMATURE GRANULOCYTE (%) 2.3 % (0.0-0.7); LYMPHOCYTE (%) 16.1 % (15-42); LYMPHOCYTE COUNT 1.4 K/uL (1.0-2.8); MCH 24.7 PG (29.0-34.0); MCV 79.8 FL (86-99); MONOCYTE (%) 8.8 % (3-12); MONOCYTE COUNT 0.8 K/uL (0-0.8); NEUTROPHIL (%) 67.9 % (45-76); NEUTROPHIL COUNT 5.8 K/uL (1.8-6.4); RBC DIS.WIDTH-CV 16.3 % (11.8-14.6); RED BLOOD COUNT 4.05 M/uL (4.00-5.50); WHITE BLOOD COUNT 8.5 K/uL (4.1-10.2)
[2017-10-03 07:31] LABS: ANISOCYTOSIS 1+; MICROCYTOSIS 1+; PLAT.SUFFICIENCY ADEQUATE
[2017-10-03 07:32] LABS: PLATELET COUNT 298 K/uL (156-360)
[2017-10-03 07:36] LABS: CHLORIDE 107 MEQ/L (99-109); CREATININE 1.1 MG/DL (0.6-1.3); GFR ESTIMATE (CALCULATED) > 59 mL/min/ (58.99-99999); GLUCOSE 167 mg/dL (70-99); SODIUM 141 MEQ/L (136-147); UREA NITROGEN (BUN) 15 mg/dL (9-23)
[2017-10-03 07:44] VITALS: BP 110/56
[2017-10-03 12:32] VITALS: BP 148/71
[2017-10-03 16:35] VITALS: BP 132/81
[2017-10-03 20:00] VITALS: BP 147/73
[2017-10-04] VITALS: BP 142/82
[2017-10-04 04:59] VITALS: BP 133/67
[2017-10-04 05:49] LABS: HEMATOCRIT 31.2 % (38.0-50.0); HEMOGLOBIN 9.7 G/DL (12.5-16.6); MCHC 31.1 G/DL (30.0-36.0); MCV 80.4 FL (86-99); PLATELET COUNT 279 K/uL (156-360); RBC DIS.WIDTH-CV 16.8 % (11.8-14.6); RBC DIS.WIDTH-SD 49.3 % (39-53); RED BLOOD COUNT 3.88 M/uL (4.00-5.50); WHITE BLOOD COUNT 7.8 K/uL (4.1-10.2)
[2017-10-04 06:12] LABS: CHLORIDE 111 MEQ/L (99-109); CREATININE 1.1 MG/DL (0.6-1.3); GFR ESTIMATE (CALCULATED) > 59 mL/min/ (58.99-99999); GLUCOSE 136 mg/dL (70-99); SODIUM 144 MEQ/L (136-147); UREA NITROGEN (BUN) 14 mg/dL (9-23); VANCOMYCIN, TROUGH 21.4 MCG/ML (10-20)
[2017-10-04 06:13] LABS: POTASSIUM 3.9 MEQ/L (3.7-5.4)
[2017-10-04 07:25] VITALS: BP 137/74
[2017-10-04 07:58] VITALS: BP 146/89
[2017-10-04 09:40] LABS: HEMOGLOBIN A1c (GLYCOHEMOGLOB) 8.1 % (Below 5.7)
[2017-10-04 11:57] VITALS: BP 175/106
[2017-10-04 16:25] VITALS: BP 142/96
[2017-10-05 00:03] VITALS: BP 136/66
[2017-10-05 07:47] VITALS: BP 123/69
[2017-10-05 15:34] VITALS: BP 125/60
[2017-10-06] VITALS: BP 129/79
[2017-10-06 06:03] LABS: CHLORIDE 107 MEQ/L (99-109); CREATININE 1.5 MG/DL (0.6-1.3); GFR ESTIMATE (CALCULATED) 49 mL/min/ (58.99-99999); GLUCOSE 108 mg/dL (70-99); MAGNESIUM 1.7 mg/dl (1.3-2.7); SODIUM 140 MEQ/L (136-147); UREA NITROGEN (BUN) 18 mg/dL (9-23)
[2017-10-06 06:04] LABS: BASOPHIL (%) 0.5 % (0-1); EOSINOPHIL COUNT 0.4 K/uL (0-0.3); HEMATOCRIT 32.2 % (38.0-50.0); IMMATURE GRANULOCYTE (%) 1.9 % (0.0-0.7); LYMPHOCYTE (%) 20.1 % (15-42); LYMPHOCYTE COUNT 1.8 K/uL (1.0-2.8); MCHC 31.1 G/DL (30.0-36.0); MCV 80.5 FL (86-99); MONOCYTE (%) 7.6 % (3-12); MONOCYTE COUNT 0.7 K/uL (0-0.8); NEUTROPHIL (%) 65.9 % (45-76); NEUTROPHIL COUNT 5.8 K/uL (1.8-6.4); PLATELET COUNT 332 K/uL (156-360); RBC DIS.WIDTH-CV 16.5 % (11.8-14.6); RBC DIS.WIDTH-SD 48.6 % (39-53); WHITE BLOOD COUNT 8.8 K/uL (4.1-10.2)
[2017-10-06 08:14] VITALS: BP 140/76
[2017-10-06 16:29] VITALS: BP 140/88
[2017-10-07 00:12] VITALS: BP 148/66
[2017-10-07 06:52] LABS: BASOPHIL (%) 0.7 % (0-1); BASOPHIL COUNT 0.1 K/uL (0-0.1); EOSINOPHIL (%) 3.7 % (0-5); EOSINOPHIL COUNT 0.3 K/uL (0-0.3); HEMATOCRIT 29.1 % (38.0-50.0); HEMOGLOBIN 9.2 G/DL (12.5-16.6); IMMATURE GRANULOCYTE (%) 2.4 % (0.0-0.7); LYMPHOCYTE (%) 17.6 % (15-42); LYMPHOCYTE COUNT 1.3 K/uL (1.0-2.8); MCH 24.7 PG (29.0-34.0); MCHC 31.6 G/DL (30.0-36.0); MCV 78.2 FL (86-99); MONOCYTE COUNT 0.6 K/uL (0-0.8); NEUTROPHIL (%) 67.6 % (45-76); NEUTROPHIL COUNT 4.9 K/uL (1.8-6.4); PLATELET COUNT 304 K/uL (156-360); RBC DIS.WIDTH-CV 16.1 % (11.8-14.6); RBC DIS.WIDTH-SD 46.3 % (39-53); RED BLOOD COUNT 3.72 M/uL (4.00-5.50); WHITE BLOOD COUNT 7.2 K/uL (4.1-10.2)
[2017-10-07 07:17] LABS: CHLORIDE 109 MEQ/L (99-109); CREATININE 1.7 MG/DL (0.6-1.3); GFR ESTIMATE (CALCULATED) 42 mL/min/ (58.99-99999); GLUCOSE 126 mg/dL (70-99); POTASSIUM 3.9 MEQ/L (3.7-5.4); SODIUM 142 MEQ/L (136-147); UREA NITROGEN (BUN) 19 mg/dL (9-23)
[2017-10-07 08:16] VITALS: BP 125/56
[2017-10-07 11:27] LABS: MAGNESIUM 1.7 mg/dl (1.3-2.7); URIC ACID 5.2 mg/dL (3.1-9.2)
[2017-10-07 12:13] VITALS: BP 142/69
[2017-10-07 16:00] VITALS: BP 144/82
[2017-10-08 00:39] VITALS: BP 133/60
[2017-10-08 07:11] LABS: BASOPHIL (%) 0.9 % (0-1); BASOPHIL COUNT 0.1 K/uL (0-0.1); EOSINOPHIL COUNT 0.3 K/uL (0-0.3); HEMATOCRIT 28.4 % (38.0-50.0); HEMOGLOBIN 9.1 G/DL (12.5-16.6); IMMATURE GRANULOCYTE (%) 3.2 % (0.0-0.7); LYMPHOCYTE (%) 21.6 % (15-42); LYMPHOCYTE COUNT 1.4 K/uL (1.0-2.8); MCH 24.7 PG (29.0-34.0); MONOCYTE (%) 7.5 % (3-12); MONOCYTE COUNT 0.5 K/uL (0-0.8); NEUTROPHIL (%) 62.8 % (45-76); NEUTROPHIL COUNT 4.1 K/uL (1.8-6.4); PLATELET COUNT 332 K/uL (156-360); RBC DIS.WIDTH-CV 16.4 % (11.8-14.6); RBC DIS.WIDTH-SD 46.2 % (39-53); RED BLOOD COUNT 3.69 M/uL (4.00-5.50); WHITE BLOOD COUNT 6.5 K/uL (4.1-10.2)
[2017-10-08 07:35] LABS: ALBUMIN 2.3 G/DL (3.2-4.8); CHLORIDE 109 MEQ/L (99-109); CREATININE 1.6 MG/DL (0.6-1.3); GFR ESTIMATE (CALCULATED) 45 mL/min/ (58.99-99999); GLUCOSE 109 mg/dL (70-99); MAGNESIUM 1.7 mg/dl (1.3-2.7); POTASSIUM 3.4 MEQ/L (3.7-5.4); SODIUM 141 MEQ/L (136-147); UREA NITROGEN (BUN) 19 mg/dL (9-23)
[2017-10-08 07:45] VITALS: BP 144/84
[2017-10-08 15:46] VITALS: BP 126/65
[2017-10-08 23:30] VITALS: BP 133/60
[2017-10-09 07:17] LABS: ALBUMIN 2.3 G/DL (3.2-4.8); CHLORIDE 108 MEQ/L (99-109); CREATININE 1.6 MG/DL (0.6-1.3); GFR ESTIMATE (CALCULATED) 45 mL/min/ (58.99-99999); GLUCOSE 122 mg/dL (70-99); PHOSPHORUS 3.7 mg/dL (2.5-4.9); SODIUM 142 MEQ/L (136-147); UREA NITROGEN (BUN) 20 mg/dL (9-23)
[2017-10-09 07:23] LABS: MAGNESIUM 2.1 mg/dl (1.3-2.7); POTASSIUM 4.1 MEQ/L (3.7-5.4)
[2017-10-09 08:01] VITALS: BP 121/59
[2017-10-09 16:11] VITALS: BP 180/80
== END 2017-10-09 17:48 | disposition home or self-care (01) | DRG 872 ==
LOC: EME 10:00 → EDOF 14:13 → 5SOUTH 14:13 → ENRESERV 14:14 → EDOF 14:39 → ENRESERV 15:04 → 5SOUTH 18:15 → ENPENDDIS 10-09 → 5SOUTH 10-09 17:48
PROVIDERS: Emergency Medicine; Internal Medicine; Physician Assistant; Physician Assistant Medical
DX: A41.89 Other specified sepsis (principal); L03.311 Cellulitis of abdominal wall; B37.49 Other urogenital candidiasis; E87.2 Acidosis; E83.51 Hypocalcemia; E11.40 Type 2 diabetes mellitus with diabetic neuropathy, unspecified; N17.9 Acute kidney failure, unspecified; T36.7X5A Adverse effect of antifungal antibiotics, systemically used, initial encounter; N14.1 Nephropathy induced by other drugs, medicaments and biological substances; C61 Malignant neoplasm of prostate; N13.9 Obstructive and reflux uropathy, unspecified; R32 Unspecified urinary incontinence; E87.6 Hypokalemia; K21.9 Gastro-esophageal reflux disease without esophagitis; F32.9 Major depressive disorder, single episode, unspecified; E55.9 Vitamin D deficiency, unspecified; D64.9 Anemia, unspecified; B19.10 Unspecified viral hepatitis B without hepatic coma; G89.4 Chronic pain syndrome; R29.6 Repeated falls; Z66 Do not resuscitate; E66.01 Morbid (severe) obesity due to excess calories; Z68.43 Body mass index [BMI] 50.0-59.9, adult; Z79.4 Long term (current) use of insulin; Z87.440 Personal history of urinary (tract) infections; Z91.19 Patient's noncompliance with other medical treatment and regimen
CPT/HCPCS: 71045; 80048; 80053; 80069; 80202; 81003; 82306; 82330; 82436; 82550; 82570; 82948; 83036; 83605; 83690; 83735; 84300; 84550; 85025; 85027; 87040; 87077; 87086; 87106; 87186; 87641; 87801; 89190; 93005; 97530 GP; 99281; 99285; J0285; J0692; J0696; J1650; J1815; J1956; J2405; J3370; J3475; J7030; J7040; J7060

== ENCOUNTER 2018-01-12 22:41 | Emergency (ER) | payer OTHER ==
[~2018-01-12] VITALS: Ht 180.3 cm; Wt 110.0 kg
[~2018-01-12 22:41] MED LIST changes: +CREAM TP; +DOCUSATE SODIU100 MG PO; +DUONEB 2.5-0.5 M3 ML AEROSOL; +GABAPENTIN800 MG PO; +LINEZOLID600 MG PO; +TAMSULOSIN HCL0.4 MG PO; +TRESIBA FL100 UNIT/1 SC
[2018-01-13 00:20] LABS: APPEARANCE TURBID ((CLEAR)); BILIRUBIN NEGATIVE; BLOOD SMALL; COLOR AMBER ((YELLOW)); GLUCOSE (STRIP) NEGATIVE; KETONES NEGATIVE; LEUKOCYTES MODERATE; NITRITE NEGATIVE; PROTEIN (STRIP) 100; SPECIFIC GRAVITY 1.009 (1.000-1.030); UROBILINOGEN 0.2 MG/DL (0.2-1.0)
[2018-01-13 00:22] LABS: BACTERIA 3+ /HPF; EPITHELIAL CELLS NONE SEEN /HPF; MUCUS 4+ /LPF; RED BLOOD CELLS 15-20 /HPF (0-5); UCUL ADDED? YES; WHITE BLOOD CELLS TNTC /HPF (0-5)
[2018-01-13 00:27] LABS: BASOPHIL (%) 0.5 % (0-1); BASOPHIL COUNT 0.1 K/uL (0-0.1); EOSINOPHIL (%) 2.9 % (0-5); EOSINOPHIL COUNT 0.3 K/uL (0-0.3); HEMATOCRIT 32.2 % (38.0-50.0); HEMOGLOBIN 10.3 G/DL (12.5-16.6); IMMATURE GRANULOCYTE (%) 1.9 % (0.0-0.7); LYMPHOCYTE (%) 14.2 % (15-42); LYMPHOCYTE COUNT 1.4 K/uL (1.0-2.8); MCH 25.7 PG (29.0-34.0); MCV 80.3 FL (86-99); MONOCYTE (%) 5.3 % (3-12); MONOCYTE COUNT 0.5 K/uL (0-0.8); NEUTROPHIL (%) 75.2 % (45-76); NEUTROPHIL COUNT 7.1 K/uL (1.8-6.4); PLATELET COUNT 312 K/uL (156-360); RBC DIS.WIDTH-CV 16.8 % (11.8-14.6); RBC DIS.WIDTH-SD 48.6 % (39-53); RED BLOOD COUNT 4.01 M/uL (4.00-5.50); WHITE BLOOD COUNT 9.5 K/uL (4.1-10.2)
[2018-01-13 00:35] LABS: CHLORIDE 97 mEq/L (99-109); POTASSIUM 4.9 mEq/L (3.7-5.4); SODIUM 133 mEq/L (136-147)
[2018-01-13 00:36] LABS: GLUCOSE 303 mg/dL (70-99)
[2018-01-13 00:40] LABS: GFR ESTIMATE (CALCULATED) 35 mL/min/ (58.99-99999)
[2018-01-13 00:41] LABS: UREA NITROGEN (BUN) 32 mg/dL (9-23)
[2018-01-13] MEDS ORDERED: DIFLUCAN200 MG PO (01:57)
[2018-01-13] MEDS ORDERED: CIPRO500 MG PO (01:57)
[2018-01-13 02:41] VITALS: BP 99/65
== END 2018-01-13 02:42 | disposition home or self-care (01) ==
LOC: EME → EDBD 22:41 → EME 22:41
PROVIDERS: Emergency Medicine
DX: N39.0 Urinary tract infection, site not specified (principal); N48.1 Balanitis; Z87.440 Personal history of urinary (tract) infections; K21.9 Gastro-esophageal reflux disease without esophagitis; E78.5 Hyperlipidemia, unspecified; E11.40 Type 2 diabetes mellitus with diabetic neuropathy, unspecified; B19.10 Unspecified viral hepatitis B without hepatic coma; F32.9 Major depressive disorder, single episode, unspecified; Z88.1 Allergy status to other antibiotic agents
CPT/HCPCS: 80048; 81003; 85025; 87077; 87086; 87186; 99281; 99284

== ENCOUNTER 2018-01-25 10:48 | Inpatient (IN) | payer OTHER ==
[~2018-01-25] VITALS: Ht 177.8 cm; Wt 152.8 kg
[~2018-01-25 10:48] MED LIST changes: +CIPRO500 MG PO
[2018-01-25 11:22] LABS: BASOPHIL (%) 0.6 % (0-1); BASOPHIL COUNT 0.1 K/uL (0-0.1); EOSINOPHIL (%) 0.6 % (0-5); EOSINOPHIL COUNT 0.1 K/uL (0-0.3); HEMATOCRIT 32.7 % (38.0-50.0); HEMOGLOBIN 10.3 G/DL (12.5-16.6); IMMATURE GRANULOCYTE (%) 2.4 % (0.0-0.7); LYMPHOCYTE COUNT 0.8 K/uL (1.0-2.8); MCH 26.5 PG (29.0-34.0); MCHC 31.5 G/DL (30.0-36.0); MONOCYTE (%) 2.6 % (3-12); MONOCYTE COUNT 0.3 K/uL (0-0.8); NEUTROPHIL (%) 85.8 % (45-76); PLATELET COUNT 315 K/uL (156-360); RBC DIS.WIDTH-CV 18.5 % (11.8-14.6); RBC DIS.WIDTH-SD 56.7 % (39-53); RED BLOOD COUNT 3.88 M/uL (4.00-5.50); WHITE BLOOD COUNT 10.5 K/uL (4.1-10.2)
[2018-01-25 11:23] LABS: MCV 84.3 FL (86-99)
[2018-01-25 11:28] LABS: ALBUMIN 3.3 g/dL (3.2-4.8); CHLORIDE 98 mEq/L (99-109); POTASSIUM 4.9 mEq/L (3.7-5.4); SODIUM 133 mEq/L (136-147)
[2018-01-25 11:29] LABS: MAGNESIUM 1.8 mg/dL (1.3-2.7)
[2018-01-25 11:30] LABS: TOTAL PROTEIN 8.5 g/dL (6.4-8.3)
[2018-01-25 11:32] LABS: TOTAL BILIRUBIN 0.5 mg/dL (0.0-1.0)
[2018-01-25 11:34] LABS: ALKALINE PHOSPHATASE 298 IU/L (3-129); CREATININE 2.5 mg/dL (0.6-1.3); GFR ESTIMATE (CALCULATED) 27 mL/min/ (58.99-99999)
[2018-01-25 11:35] LABS: UREA NITROGEN (BUN) 45 mg/dL (9-23)
[2018-01-25 11:36] LABS: AST (GOT) 32 IU/L (2-34)
[2018-01-25 11:37] LABS: ALT (GPT) 35 IU/L (3-49)
[2018-01-25 11:39] LABS: GLUCOSE 491 mg/dL (70-99)
[2018-01-25 11:40] LABS: TROP-I INTERPRETATION NEGATIVE; TROPONIN-I 0.01 ng/mL (0.0-0.30)
[2018-01-25 12:47] LABS: APPEARANCE TURBID ((CLEAR)); BILIRUBIN NEGATIVE; BLOOD MODERATE; COLOR YELLOW ((YELLOW)); GLUCOSE (STRIP) 50; KETONES NEGATIVE; LEUKOCYTES LARGE; NITRITE NEGATIVE; PROTEIN (STRIP) 100; SPECIFIC GRAVITY 1.009 (1.000-1.030); UROBILINOGEN 0.2 MG/DL (0.2-1.0)
[2018-01-25 13:03] LABS: UCUL ADDED? YES; WHITE BLOOD CELLS TNTC /HPF (0-5)
[2018-01-25] MEDS ORDERED: FLOMAX0.4 MG PO (14:41)
[2018-01-25] MEDS ORDERED: LEVEMIR100 UNIT/2 SC (14:42)
[2018-01-25] MEDS ORDERED: DIFLUCAN200 MG PO (14:46)
[2018-01-25] MEDS ORDERED: PERCOCET 7.51 TABLET PO (14:47)
[2018-01-25] MEDS ORDERED: ZANTAC300 MG PO (14:49)
[2018-01-25 18:26] VITALS: BP 113/73
[2018-01-25 23:31] VITALS: BP 111/56
[2018-01-26 07:03] LABS: HEMOGLOBIN 9.5 G/DL (12.5-16.6); MCH 25.6 PG (29.0-34.0); MCHC 30.6 G/DL (30.0-36.0); MCV 83.6 FL (86-99); PLATELET COUNT 325 K/uL (156-360); RBC DIS.WIDTH-CV 18.6 % (11.8-14.6); RBC DIS.WIDTH-SD 55.9 % (39-53); RED BLOOD COUNT 3.71 M/uL (4.00-5.50); WHITE BLOOD COUNT 9.9 K/uL (4.1-10.2)
[2018-01-26 07:25] LABS: ALBUMIN 2.8 G/DL (3.2-4.8); ALKALINE PHOSPHATASE 200 IU/L (3-129); ALT (GPT) 26 IU/L (3-49); AST (GOT) 22 IU/L (2-34); CHLORIDE 103 MEQ/L (99-109); CREATININE 2.3 MG/DL (0.6-1.3); GFR ESTIMATE (CALCULATED) 30 mL/min/ (58.99-99999); POTASSIUM 4.1 MEQ/L (3.7-5.4); SODIUM 139 MEQ/L (136-147); TOTAL BILIRUBIN 0.3 MG/DL (0.0-1.0); TOTAL PROTEIN 7.3 G/DL (6.4-8.3); UREA NITROGEN (BUN) 45 mg/dL (9-23)
[2018-01-26 07:26] LABS: GLUCOSE 72 mg/dL (70-99)
[2018-01-26 07:52] VITALS: BP 117/67
[2018-01-26 16:00] VITALS: BP 110/69
[2018-01-26 16:47] LABS: IRON 56 MCG/DL (35-150); PHOSPHORUS 5.1 mg/dL (2.5-4.9); TRANSFERRIN (TIBC) 168.5 mg/dL (215-380); TRANSFERRIN SATUR. 33 % (20-55)
[2018-01-26 23:30] VITALS: BP 126/73
[2018-01-27 06:49] LABS: ALBUMIN 2.6 G/DL (3.2-4.8); CHLORIDE 105 MEQ/L (99-109); CREATININE 2.1 MG/DL (0.6-1.3); GFR ESTIMATE (CALCULATED) 33 mL/min/ (58.99-99999); GLUCOSE 60 mg/dL (70-99); PHOSPHORUS 4.9 mg/dL (2.5-4.9); POTASSIUM 4.8 MEQ/L (3.7-5.4); SODIUM 138 MEQ/L (136-147); UREA NITROGEN (BUN) 42 mg/dL (9-23)
[2018-01-27 07:24] VITALS: BP 104/53
[2018-01-27 07:33] LABS: FERRITIN 461 NG/ML (22-322)
[2018-01-27 07:57] LABS: FOLIC ACID (FOLATE) 3.5 NG/ML (5.0-22.0)
[2018-01-27 16:36] VITALS: BP 95/48
[2018-01-27 17:47] VITALS: BP 110/60
[2018-01-27 22:57] VITALS: BP 121/70
[2018-01-28 06:08] LABS: ALBUMIN 2.4 G/DL (3.2-4.8); CHLORIDE 105 MEQ/L (99-109); CREATININE 2.2 MG/DL (0.6-1.3); GFR ESTIMATE (CALCULATED) 31 mL/min/ (58.99-99999); PHOSPHORUS 4.2 mg/dL (2.5-4.9); POTASSIUM 4.6 MEQ/L (3.7-5.4); SODIUM 135 MEQ/L (136-147); UREA NITROGEN (BUN) 36 mg/dL (9-23)
[2018-01-28 06:10] LABS: GLUCOSE 49 mg/dL (70-99)
[2018-01-28 07:06] VITALS: BP 123/57
[2018-01-28 15:45] VITALS: BP 112/51
[2018-01-29 00:27] VITALS: BP 131/62
[2018-01-29 06:40] LABS: ALBUMIN 2.5 G/DL (3.2-4.8); CHLORIDE 109 MEQ/L (99-109); CREATININE 2.2 MG/DL (0.6-1.3); GFR ESTIMATE (CALCULATED) 31 mL/min/ (58.99-99999); GLUCOSE 75 mg/dL (70-99); PHOSPHORUS 5.3 mg/dL (2.5-4.9); POTASSIUM 5.5 MEQ/L (3.7-5.4); SODIUM 141 MEQ/L (136-147); UREA NITROGEN (BUN) 33 mg/dL (9-23)
[2018-01-29 07:15] VITALS: BP 117/59
[2018-01-29 15:26] VITALS: BP 115/73
[2018-01-30] VITALS: BP 122/69
[2018-01-30 05:56] LABS: HEMATOCRIT 31.4 % (38.0-50.0); HEMOGLOBIN 9.7 G/DL (12.5-16.6); MCH 26.1 PG (29.0-34.0); MCHC 30.9 G/DL (30.0-36.0); MCV 84.6 FL (86-99); PLATELET COUNT 334 K/uL (156-360); RBC DIS.WIDTH-CV 19.3 % (11.8-14.6); RBC DIS.WIDTH-SD 59.3 % (39-53); RED BLOOD COUNT 3.71 M/uL (4.00-5.50); WHITE BLOOD COUNT 5.8 K/uL (4.1-10.2)
[2018-01-30 06:28] LABS: CHLORIDE 107 MEQ/L (99-109); CREATININE 2.2 MG/DL (0.6-1.3); GFR ESTIMATE (CALCULATED) 31 mL/min/ (58.99-99999); GLUCOSE 73 mg/dL (70-99); POTASSIUM 5.2 MEQ/L (3.7-5.4); SODIUM 141 MEQ/L (136-147); UREA NITROGEN (BUN) 32 mg/dL (9-23)
[2018-01-30 06:30] LABS: ALBUMIN 2.6 G/DL (3.2-4.8); CHLORIDE 106 MEQ/L (99-109); CREATININE 2.2 MG/DL (0.6-1.3); GFR ESTIMATE (CALCULATED) 31 mL/min/ (58.99-99999); GLUCOSE 72 mg/dL (70-99); PHOSPHORUS 5.1 mg/dL (2.5-4.9); POTASSIUM 5.5 MEQ/L (3.7-5.4); SODIUM 142 MEQ/L (136-147); UREA NITROGEN (BUN) 33 mg/dL (9-23)
[2018-01-30 07:14] VITALS: BP 142/63
[2018-01-30 15:31] VITALS: BP 129/59
[2018-01-31 00:34] VITALS: BP 109/60
[2018-01-31 07:16] LABS: ALBUMIN 2.5 G/DL (3.2-4.8); CHLORIDE 106 MEQ/L (99-109); GFR ESTIMATE (CALCULATED) 35 mL/min/ (58.99-99999); PHOSPHORUS 4.3 mg/dL (2.5-4.9); POTASSIUM 5.7 MEQ/L (3.7-5.4); SODIUM 140 MEQ/L (136-147); UREA NITROGEN (BUN) 26 mg/dL (9-23)
[2018-01-31 07:17] LABS: GLUCOSE 135 mg/dL (70-99)
[2018-01-31 07:27] VITALS: BP 123/71
[2018-01-31 15:22] VITALS: BP 136/57
[2018-01-31] MEDS ORDERED: VITAMIN D-32000 UNI2 PO (16:17)
[2018-01-31] MEDS ORDERED: CYANOCOBALAM1000 MCG PO (16:17)
[2018-01-31] MEDS ORDERED: ROCEPHIN1 GM/50 ML IV (16:18)
== END 2018-01-31 19:44 | disposition home health service (06) | DRG 690 ==
LOC: EME 10:48 → 5SOUTH 14:36 → EDOF 14:36 → ENRESERV 14:38 → 5SOUTH 16:29
PROVIDERS: Emergency Medicine; Internal Medicine; Internal Medicine Nephrology; Physician Assistant Medical
DX: N30.90 Cystitis, unspecified without hematuria (principal); B96.4 Proteus (mirabilis) (morganii) as the cause of diseases classified elsewhere; N17.9 Acute kidney failure, unspecified; E86.0 Dehydration; E11.65 Type 2 diabetes mellitus with hyperglycemia; E11.22 Type 2 diabetes mellitus with diabetic chronic kidney disease; N18.3 Chronic kidney disease, stage 3 (moderate); D63.1 Anemia in chronic kidney disease; K21.9 Gastro-esophageal reflux disease without esophagitis; E78.5 Hyperlipidemia, unspecified; G43.909 Migraine, unspecified, not intractable, without status migrainosus; F32.9 Major depressive disorder, single episode, unspecified; E11.40 Type 2 diabetes mellitus with diabetic neuropathy, unspecified; K59.00 Constipation, unspecified; E66.01 Morbid (severe) obesity due to excess calories; I87.2 Venous insufficiency (chronic) (peripheral); E87.2 Acidosis; C61 Malignant neoplasm of prostate; N13.30 Unspecified hydronephrosis; E55.9 Vitamin D deficiency, unspecified; E87.5 Hyperkalemia; N39.490 Overflow incontinence; N40.1 Benign prostatic hyperplasia with lower urinary tract symptoms; R33.9 Retention of urine, unspecified; R29.6 Repeated falls; F41.9 Anxiety disorder, unspecified; Z79.4 Long term (current) use of insulin; Q63.1 Lobulated, fused and horseshoe kidney; Z68.42 Body mass index [BMI] 45.0-49.9, adult
CPT/HCPCS: 74176; 80048 91; 80053; 80069; 81003; 82306; 82570; 82607; 82728; 82746; 82948; 83540; 83605; 83735; 84100; 84132 91; 84156; 84466; 84484; 85025; 85027; 87040; 87077; 87086 GA; 87186; 93005; 99281; 99285; C1753; J0696; J1644; J1815; J2405; J7030; J7040

== ENCOUNTER 2018-02-02 14:49 | Emergency (ER) | payer OTHER ==
[~2018-02-02] VITALS: Ht 180.3 cm; Wt 150.5 kg
[~2018-02-02 14:49] MED LIST changes: +CYANOCOBALAM1000 MCG PO; +FLOMAX0.4 MG PO; +ROCEPHIN1 GM/50 ML IV; +VITAMIN D-32000 UNI2 PO; +ZANTAC300 MG PO
[2018-02-02 15:58] LABS: APPEARANCE CLEAR ((CLEAR)); BILIRUBIN NEGATIVE; BLOOD SMALL; COLOR YELLOW ((YELLOW)); GLUCOSE (STRIP) 50; KETONES NEGATIVE; LEUKOCYTES LARGE; NITRITE NEGATIVE; PROTEIN (STRIP) 30; SPECIFIC GRAVITY 1.011 (1.000-1.030); UROBILINOGEN 0.2 MG/DL (0.2-1.0)
[2018-02-02 16:05] LABS: BACTERIA RARE /HPF; EPITHELIAL CELLS RARE /HPF; HYALINE CASTS 0-5 /LPF; MUCUS TRACE /LPF; RED BLOOD CELLS 30-40 /HPF (0-5); WHITE BLOOD CELLS TNTC /HPF (0-5)
[2018-02-02 16:05] LABS: HEMATOCRIT 28.8 % (38.0-50.0); HEMOGLOBIN 9.3 G/DL (12.5-16.6); MCH 27.3 PG (29.0-34.0); MCHC 32.3 G/DL (30.0-36.0); MCV 84.5 FL (86-99); PLATELET COUNT 288 K/uL (156-360); RBC DIS.WIDTH-CV 19.2 % (11.8-14.6); RED BLOOD COUNT 3.41 M/uL (4.00-5.50)
[2018-02-02 16:15] LABS: ALBUMIN 2.9 g/dL (3.2-4.8); CHLORIDE 99 mEq/L (99-109); POTASSIUM 4.6 mEq/L (3.7-5.4); SODIUM 133 mEq/L (136-147)
[2018-02-02 16:17] LABS: TOTAL PROTEIN 7.4 g/dL (6.4-8.3)
[2018-02-02 16:19] LABS: TOTAL BILIRUBIN 0.2 mg/dL (0.0-1.0)
[2018-02-02 16:21] LABS: ALKALINE PHOSPHATASE 236 IU/L (3-129); CREATININE 2.2 mg/dL (0.6-1.3); GFR ESTIMATE (CALCULATED) 31 mL/min/ (58.99-99999)
[2018-02-02 16:22] LABS: AST (GOT) 17 IU/L (2-34); UREA NITROGEN (BUN) 29 mg/dL (9-23)
[2018-02-02 16:24] LABS: ALT (GPT) 18 IU/L (3-49)
[2018-02-02 16:29] LABS: GLUCOSE 253 mg/dL (70-99)
[2018-02-02 18:46] VITALS: BP 105/90
== END 2018-02-02 18:46 | disposition home or self-care (01) ==
LOC: EME 14:49
PROVIDERS: Emergency Medicine
DX: N39.0 Urinary tract infection, site not specified (principal); B96.4 Proteus (mirabilis) (morganii) as the cause of diseases classified elsewhere; R11.2 Nausea with vomiting, unspecified; E11.65 Type 2 diabetes mellitus with hyperglycemia; E11.22 Type 2 diabetes mellitus with diabetic chronic kidney disease; N18.9 Chronic kidney disease, unspecified; R51 Headache; E66.01 Morbid (severe) obesity due to excess calories; Z85.46 Personal history of malignant neoplasm of prostate; Z79.4 Long term (current) use of insulin; Z68.42 Body mass index [BMI] 45.0-49.9, adult
CPT/HCPCS: 80053; 81003; 82800; 83605; 83930; 85027; 87040; 87086; 93005; 99281; 99285; J0696; J2405; J7030

== ENCOUNTER 2018-02-08 18:27 | Emergency (ER) | payer OTHER ==
[~2018-02-08] VITALS: Ht 180.3 cm; Wt 156.3 kg
[2018-02-08 19:19] LABS: HEMATOCRIT 29.4 % (38.0-50.0); HEMOGLOBIN 9.5 G/DL (12.5-16.6); MCH 27.1 PG (29.0-34.0); MCHC 32.3 G/DL (30.0-36.0); PLATELET COUNT 270 K/uL (156-360); RBC DIS.WIDTH-CV 19.1 % (11.8-14.6); WHITE BLOOD COUNT 8.1 K/uL (4.1-10.2)
[2018-02-08 19:33] LABS: CHLORIDE 104 mEq/L (99-109); POTASSIUM 4.3 mEq/L (3.7-5.4); SODIUM 138 mEq/L (136-147)
[2018-02-08 19:34] LABS: GLUCOSE 238 mg/dL (70-99)
[2018-02-08 19:38] LABS: GFR ESTIMATE (CALCULATED) 45 mL/min/ (58.99-99999)
[2018-02-08 19:39] LABS: CREATININE 1.6 mg/dL (0.6-1.3); UREA NITROGEN (BUN) 20 mg/dL (9-23)
[2018-02-09 00:24] VITALS: BP 120/55
== END 2018-02-09 00:28 | disposition home or self-care (01) ==
LOC: EME 18:27
PROVIDERS: Emergency Medicine
DX: M79.604 Pain in right leg (principal); M25.561 Pain in right knee; M25.551 Pain in right hip; Z85.46 Personal history of malignant neoplasm of prostate; E11.40 Type 2 diabetes mellitus with diabetic neuropathy, unspecified; F32.9 Major depressive disorder, single episode, unspecified; E78.5 Hyperlipidemia, unspecified; K21.9 Gastro-esophageal reflux disease without esophagitis; E66.9 Obesity, unspecified; Z68.42 Body mass index [BMI] 45.0-49.9, adult
CPT/HCPCS: 73502; 73564; 80048; 81003; 85027; 99281; 99284

== ENCOUNTER 2018-02-17 17:12 | Emergency (ER) | payer OTHER ==
[~2018-02-17] VITALS: Ht 180.3 cm; Wt 155.2 kg
[2018-02-17 19:10] LABS: BASOPHIL (%) 0.8 % (0-1); BASOPHIL COUNT 0.1 K/uL (0-0.1); EOSINOPHIL (%) 4.8 % (0-5); EOSINOPHIL COUNT 0.3 K/uL (0-0.3); HEMATOCRIT 29.4 % (38.0-50.0); HEMOGLOBIN 9.6 G/DL (12.5-16.6); IMMATURE GRANULOCYTE (%) 1.2 % (0.0-0.7); LYMPHOCYTE (%) 23.5 % (15-42); LYMPHOCYTE COUNT 1.5 K/uL (1.0-2.8); MCH 27.2 PG (29.0-34.0); MCHC 32.7 G/DL (30.0-36.0); MCV 83.3 FL (86-99); MONOCYTE (%) 5.9 % (3-12); MONOCYTE COUNT 0.4 K/uL (0-0.8); NEUTROPHIL (%) 63.8 % (45-76); NEUTROPHIL COUNT 4.1 K/uL (1.8-6.4); PLATELET COUNT 258 K/uL (156-360); RBC DIS.WIDTH-CV 18.2 % (11.8-14.6); RED BLOOD COUNT 3.53 M/uL (4.00-5.50); WHITE BLOOD COUNT 6.5 K/uL (4.1-10.2)
[2018-02-17 19:30] LABS: CARBON DIOXIDE (BICARBONATE) 30.5 MEQ/L (20-31); TROP-I INTERPRETATION NEGATIVE; TROPONIN-I 0.01 ng/mL (0.0-0.30)
[2018-02-17 19:32] LABS: APPEARANCE SL.HAZY ((CLEAR)); BILIRUBIN NEGATIVE; BLOOD NEGATIVE; COLOR YELLOW ((YELLOW)); GLUCOSE (STRIP) NEGATIVE; KETONES NEGATIVE; LEUKOCYTES LARGE; NITRITE NEGATIVE; PROTEIN (STRIP) NEGATIVE; SPECIFIC GRAVITY 1.011 (1.000-1.030); UROBILINOGEN 0.2 MG/DL (0.2-1.0)
[2018-02-17 19:42] LABS: BACTERIA RARE /HPF; EPITHELIAL CELLS RARE /HPF; MUCUS TRACE /LPF; RED BLOOD CELLS 0-5 /HPF (0-5); UCUL ADDED? YES; WHITE BLOOD CELLS TNTC /HPF (0-5)
[2018-02-17 19:48] LABS: ALBUMIN 2.9 g/dL (3.2-4.8); CHLORIDE 104 mEq/L (99-109); POTASSIUM 4.5 mEq/L (3.7-5.4); SODIUM 139 mEq/L (136-147)
[2018-02-17 19:49] LABS: MAGNESIUM 1.9 mg/dL (1.3-2.7)
[2018-02-17 19:51] LABS: GLUCOSE 149 mg/dL (70-99)
[2018-02-17 19:53] LABS: TOTAL BILIRUBIN 0.3 mg/dL (0.0-1.0)
[2018-02-17 19:54] LABS: ALKALINE PHOSPHATASE 131 IU/L (3-129); CREATININE 1.3 mg/dL (0.6-1.3); GFR ESTIMATE (CALCULATED) 57 mL/min/ (58.99-99999)
[2018-02-17 19:55] LABS: UREA NITROGEN (BUN) 22 mg/dL (9-23)
[2018-02-17 19:56] LABS: AST (GOT) 22 IU/L (2-34)
[2018-02-17 19:57] LABS: ALT (GPT) 17 IU/L (3-49)
[2018-02-17 22:12] VITALS: BP 108/46
== END 2018-02-17 23:28 | disposition home or self-care (01) ==
LOC: EME 17:12
PROVIDERS: Emergency Medicine
DX: R10.84 Generalized abdominal pain (principal); N39.0 Urinary tract infection, site not specified; R33.9 Retention of urine, unspecified; E66.01 Morbid (severe) obesity due to excess calories; R11.2 Nausea with vomiting, unspecified; R51 Headache; R53.1 Weakness; E11.9 Type 2 diabetes mellitus without complications; Z79.4 Long term (current) use of insulin; Z85.46 Personal history of malignant neoplasm of prostate; Z87.440 Personal history of urinary (tract) infections; Z96.0 Presence of urogenital implants; M47.894 Other spondylosis, thoracic region; Z68.42 Body mass index [BMI] 45.0-49.9, adult; Z53.20 Procedure and treatment not carried out because of patient's decision for unspecified reasons
CPT/HCPCS: 71046; 74176; 80053; 81003; 82803; 83605; 83735; 84484; 85025; 87040; 87086 GA; 93005; 99281; 99285; J2405; J7030

== ENCOUNTER 2018-04-02 17:47 | Inpatient (IN) | payer OTHER ==
[~2018-04-02] VITALS: Ht 180.3 cm; Wt 139.0 kg
[2018-04-02 19:39] LABS: BASOPHIL (%) 0.4 % (0-1); EOSINOPHIL (%) 0.4 % (0-5); HEMATOCRIT 31.8 % (38.0-50.0); IMMATURE GRANULOCYTE (%) 1.3 % (0.0-0.7); LYMPHOCYTE (%) 7.8 % (15-42); LYMPHOCYTE COUNT 0.8 K/uL (1.0-2.8); MCH 26.5 PG (29.0-34.0); MCHC 31.4 G/DL (30.0-36.0); MCV 84.1 FL (86-99); MONOCYTE (%) 4.5 % (3-12); MONOCYTE COUNT 0.5 K/uL (0-0.8); NEUTROPHIL (%) 85.6 % (45-76); NEUTROPHIL COUNT 8.5 K/uL (1.8-6.4); PLATELET COUNT 359 K/uL (156-360); RBC DIS.WIDTH-CV 15.4 % (11.8-14.6); RBC DIS.WIDTH-SD 47.1 % (39-53); RED BLOOD COUNT 3.78 M/uL (4.00-5.50); WHITE BLOOD COUNT 9.9 K/uL (4.1-10.2)
[2018-04-02 19:44] LABS: INTER. NORMALIZED RATIO 1.2
[2018-04-02 19:46] LABS: PTT 30.6 SEC (25-37)
[2018-04-02 19:47] LABS: CHLORIDE 106 mEq/L (99-109); POTASSIUM 4.3 mEq/L (3.7-5.4); SODIUM 141 mEq/L (136-147)
[2018-04-02 19:49] LABS: GLUCOSE 200 mg/dL (70-99); TOTAL PROTEIN 7.8 g/dL (6.4-8.3)
[2018-04-02 19:51] LABS: TOTAL BILIRUBIN 0.3 mg/dL (0.0-1.0)
[2018-04-02 19:53] LABS: ALKALINE PHOSPHATASE 175 IU/L (3-129); CREATININE 1.9 mg/dL (0.6-1.3); GFR ESTIMATE (CALCULATED) 37 mL/min/ (58.99-99999)
[2018-04-02 19:54] LABS: UREA NITROGEN (BUN) 24 mg/dL (9-23)
[2018-04-02 19:55] LABS: AST (GOT) 27 IU/L (2-34)
[2018-04-02 19:56] LABS: ALT (GPT) 21 IU/L (3-49); LIPASE 10 U/L (1.0-51.0)
[2018-04-02 20:35] LABS: TROP-I INTERPRETATION NEGATIVE; TROPONIN-I 0.02 ng/mL (0.0-0.30)
[2018-04-02 23:31] LABS: APPEARANCE CLOUDY ((CLEAR)); BILIRUBIN NEGATIVE; BLOOD MODERATE; COLOR YELLOW ((YELLOW)); GLUCOSE (STRIP) NEGATIVE; KETONES NEGATIVE; LEUKOCYTES LARGE; NITRITE NEGATIVE; PROTEIN (STRIP) NEGATIVE; SPECIFIC GRAVITY 1.008 (1.000-1.030); UROBILINOGEN 0.2 MG/DL (0.2-1.0)
[2018-04-02 23:54] LABS: AMORPHOUS URATES CRYSTALS 3+; BACTERIA 2+ /HPF; EPITHELIAL CELLS RARE /HPF; MUCUS NONE SEEN /LPF; RED BLOOD CELLS NONE SEEN /HPF (0-5); UCUL ADDED? YES; WHITE BLOOD CELLS TNTC /HPF (0-5)
[2018-04-03] VITALS (7 sets, daily range): BP systolic 100–131; BP diastolic 55–70
[2018-04-03] MEDS ORDERED: TAMSULOSIN HCL0.4 MG PO (00:07)
[2018-04-03] MEDS ORDERED: JANUVIA100 MG PO (00:07)
[2018-04-03] MEDS ORDERED: SERTRALINE HCL50 MG PO (00:08)
[2018-04-03] MEDS ORDERED: OXYCODONE-APAP1 EAC6 PO (00:09)
[2018-04-03] MEDS ORDERED: TRESIBA FL100 UNIT/1 SC (00:12)
[2018-04-03 05:26] LABS: BASOPHIL (%) 0.7 % (0-1); BASOPHIL COUNT 0.1 K/uL (0-0.1); EOSINOPHIL (%) 1.6 % (0-5); EOSINOPHIL COUNT 0.1 K/uL (0-0.3); HEMATOCRIT 28.3 % (38.0-50.0); HEMOGLOBIN 8.9 G/DL (12.5-16.6); IMMATURE GRANULOCYTE (%) 1.6 % (0.0-0.7); LYMPHOCYTE (%) 20.4 % (15-42); LYMPHOCYTE COUNT 1.7 K/uL (1.0-2.8); MCH 26.6 PG (29.0-34.0); MCHC 31.4 G/DL (30.0-36.0); MCV 84.7 FL (86-99); MONOCYTE (%) 7.1 % (3-12); MONOCYTE COUNT 0.6 K/uL (0-0.8); NEUTROPHIL (%) 68.6 % (45-76); NEUTROPHIL COUNT 5.6 K/uL (1.8-6.4); PLATELET COUNT 319 K/uL (156-360); RBC DIS.WIDTH-CV 15.2 % (11.8-14.6); RBC DIS.WIDTH-SD 47.3 % (39-53); RED BLOOD COUNT 3.34 M/uL (4.00-5.50); WHITE BLOOD COUNT 8.2 K/uL (4.1-10.2)
[2018-04-03 05:45] LABS: CHLORIDE 107 MEQ/L (99-109); CREATININE 1.8 MG/DL (0.6-1.3); GFR ESTIMATE (CALCULATED) 39 mL/min/ (58.99-99999); GLUCOSE 162 mg/dL (70-99); POTASSIUM 3.8 MEQ/L (3.7-5.4); SODIUM 140 MEQ/L (136-147); UREA NITROGEN (BUN) 26 mg/dL (9-23)
[2018-04-04 04:12] VITALS: BP 139/65
[2018-04-04 06:35] LABS: BASOPHIL (%) 0.6 % (0-1); EOSINOPHIL (%) 2.7 % (0-5); EOSINOPHIL COUNT 0.2 K/uL (0-0.3); HEMATOCRIT 29.9 % (38.0-50.0); HEMOGLOBIN 9.2 G/DL (12.5-16.6); IMMATURE GRANULOCYTE (%) 2.8 % (0.0-0.7); LYMPHOCYTE (%) 22.5 % (15-42); LYMPHOCYTE COUNT 1.6 K/uL (1.0-2.8); MCH 26.2 PG (29.0-34.0); MCHC 30.8 G/DL (30.0-36.0); MCV 85.2 FL (86-99); MONOCYTE COUNT 0.4 K/uL (0-0.8); NEUTROPHIL (%) 65.4 % (45-76); NEUTROPHIL COUNT 4.7 K/uL (1.8-6.4); PLATELET COUNT 332 K/uL (156-360); RBC DIS.WIDTH-CV 15.3 % (11.8-14.6); RBC DIS.WIDTH-SD 48.1 % (39-53); RED BLOOD COUNT 3.51 M/uL (4.00-5.50); WHITE BLOOD COUNT 7.1 K/uL (4.1-10.2)
[2018-04-04 06:38] LABS: CHLORIDE 109 MEQ/L (99-109); CREATININE 1.8 MG/DL (0.6-1.3); GFR ESTIMATE (CALCULATED) 39 mL/min/ (58.99-99999); POTASSIUM 4.3 MEQ/L (3.7-5.4); SODIUM 143 MEQ/L (136-147); UREA NITROGEN (BUN) 23 mg/dL (9-23)
[2018-04-04 06:39] LABS: GLUCOSE 53 mg/dL (70-99)
[2018-04-04 08:15] VITALS: BP 151/80
[2018-04-04 11:59] VITALS: BP 121/60
[2018-04-04 16:18] VITALS: BP 134/73
[2018-04-04 20:35] VITALS: BP 139/64
[2018-04-05 01:38] VITALS: BP 130/56
[2018-04-05 04:41] VITALS: BP 134/64
[2018-04-05 07:02] VITALS: BP 140/73
[2018-04-05 16:18] VITALS: BP 104/50
[2018-04-05 20:18] VITALS: BP 126/65
[2018-04-06 00:01] VITALS: BP 122/68
[2018-04-06 08:51] VITALS: BP 131/67
[2018-04-06 16:07] VITALS: BP 134/68
[2018-04-06 17:10] LABS: BASOPHIL (%) 0.4 % (0-1); EOSINOPHIL (%) 0.7 % (0-5); EOSINOPHIL COUNT 0.1 K/uL (0-0.3); HEMATOCRIT 35.1 % (38.0-50.0); HEMOGLOBIN 10.9 G/DL (12.5-16.6); IMMATURE GRANULOCYTE (%) 1.6 % (0.0-0.7); LYMPHOCYTE (%) 5.8 % (15-42); LYMPHOCYTE COUNT 0.6 K/uL (1.0-2.8); MCH 26.2 PG (29.0-34.0); MCHC 31.1 G/DL (30.0-36.0); MCV 84.4 FL (86-99); MONOCYTE (%) 3.9 % (3-12); MONOCYTE COUNT 0.4 K/uL (0-0.8); NEUTROPHIL (%) 87.6 % (45-76); NEUTROPHIL COUNT 9.2 K/uL (1.8-6.4); PLATELET COUNT 326 K/uL (156-360); RBC DIS.WIDTH-CV 15.2 % (11.8-14.6); RBC DIS.WIDTH-SD 46.6 % (39-53); RED BLOOD COUNT 4.16 M/uL (4.00-5.50); WHITE BLOOD COUNT 10.5 K/uL (4.1-10.2)
[2018-04-06 17:15] LABS: INTER. NORMALIZED RATIO 1.1
[2018-04-06 17:18] LABS: CHLORIDE 106 mEq/L (99-109); POTASSIUM 4.5 mEq/L (3.7-5.4); PTT 20.1 SEC (25-37); SODIUM 141 mEq/L (136-147)
[2018-04-06 17:24] LABS: GFR ESTIMATE (CALCULATED) 35 mL/min/ (58.99-99999)
[2018-04-06 17:25] LABS: UREA NITROGEN (BUN) 22 mg/dL (9-23)
[2018-04-06 17:29] LABS: GLUCOSE 127 mg/dL (70-99)
[2018-04-06 23:00] VITALS: BP 108/55
[2018-04-07 08:11] VITALS: BP 125/58
[2018-04-07] MEDS ORDERED: ANASPAZ0.125 MG PO (11:36)
[2018-04-07] MEDS ORDERED: ATIVAN0.5 MG PO (11:36)
[2018-04-07] MEDS ORDERED: MORPHINE CON20 MG/M1 PO (11:36)
== END 2018-04-07 15:17 | disposition home or self-care (01) | DRG 392 ==
LOC: EME 17:47 → 2EAST 04-03 00:09 → EDOF 04-03 00:09 → 4EAST 04-03 00:09 → ENRESERV 04-03 00:10 → 4EAST 04-03 00:45 → ENRESERV 04-03 12:04 → 2EAST 04-03 14:34 → ENPENDDIS 04-07 14:39 → 2EAST 04-07 15:17
PROVIDERS: Emergency Medicine; Hospitalist; Internal Medicine; Student in an Organized Health Care Education/Training Program
DX: R11.2 Nausea with vomiting, unspecified (principal); B19.10 Unspecified viral hepatitis B without hepatic coma; C25.9 Malignant neoplasm of pancreas, unspecified; Z68.42 Body mass index [BMI] 45.0-49.9, adult; E11.40 Type 2 diabetes mellitus with diabetic neuropathy, unspecified; E11.22 Type 2 diabetes mellitus with diabetic chronic kidney disease; E11.649 Type 2 diabetes mellitus with hypoglycemia without coma; C61 Malignant neoplasm of prostate; E11.51 Type 2 diabetes mellitus with diabetic peripheral angiopathy without gangrene; E78.5 Hyperlipidemia, unspecified; E86.0 Dehydration; F32.9 Major depressive disorder, single episode, unspecified; F17.200 Nicotine dependence, unspecified, uncomplicated; N40.0 Benign prostatic hyperplasia without lower urinary tract symptoms; K21.9 Gastro-esophageal reflux disease without esophagitis; G43.909 Migraine, unspecified, not intractable, without status migrainosus; I83.009 Varicose veins of unspecified lower extremity with ulcer of unspecified site; N18.3 Chronic kidney disease, stage 3 (moderate); Z66 Do not resuscitate; E66.01 Morbid (severe) obesity due to excess calories; Z85.07 Personal history of malignant neoplasm of pancreas; Z79.4 Long term (current) use of insulin; Z85.46 Personal history of malignant neoplasm of prostate; Z87.440 Personal history of urinary (tract) infections; Z91.19 Patient's noncompliance with other medical treatment and regimen; Z51.5 Encounter for palliative care
CPT/HCPCS: 70450; 71045; 74176; 80048; 80053; 81003; 82948; 83605; 83690; 83880; 84484; 85025; 85610; 85730; 87040; 87086; 87106; 87641; 93005; 94799; 99281; 99285; A6214; J0692; J1644; J2405; J3370; J7030; S0073